=== PATIENT | male | born 1985 | race Caucasian/White ===

== ENCOUNTER 2017-07-28 21:17 | Emergency (ER) | payer BC ==
--- NOTE | 2017-07-28 21:37 | EDM.PDOC ---
ED HPI GENERAL MEDICAL PROBLEM - General Chief Complaint: Lower Extremity Injury/Pain Stated Complaint: SURGERY COMPLICATIONS Time Seen by Provider: 07/28/17 21:18 Source of Information: Reports: Patient History Limitations: Reports: No Limitations - History of Present Illness INITIAL COMMENTS - FREE TEXT/NARRATIVE: HISTORY AND PHYSICAL: History of present illness: 32-year-old male presenting emergency department with chief complaint of right upper leg swelling and pain 1-1/2 hours. Patient states that he had surgery today to remove the mass from his upper inner thigh in [place]. Dr. Collado, vascular surgeon perform the surgery. He was discharged today in good condition with a prescription for Cipro which he took at 5 PM as well as Percocet which she took it 1 PM. Patient does admit to walking up and down the stairs multiple times. At 2014 patient states that he began to have significant pain in the right inner thigh where the surgery was done. He also noticed increased swelling as well as throbbing. This increased dramatically so he called EMS for evaluation. Patient states that his has called Dr. Lima office but they have not heard back. - Talked with Dr. Kendall [facility] [place] as well as Dr. Collado [facility] [place]. Dr. Collado accepts patient for transfer for suspected postoperative bleeding. Review of systems: As per history of present illness and below otherwise all systems reviewed and negative. Past medical history: As per history of present illness and as reviewed below otherwise noncontributory. Surgical history: As per history of present illness and as reviewed below otherwise noncontributory. Social history: No reported history of drug or alcohol abuse. Family history: As per history of present illness and as reviewed below otherwise noncontributory. Physical exam: HEENT: Atraumatic, normocephalic, pupils reactive, negative for conjunctival pallor or scleral icterus, mucous membranes moist, throat clear, neck supple, nontender, trachea midline. Lungs: Clear to auscultation, breath sounds equal bilaterally, chest nontender. Heart: S1S2, regular, negative for clicks, rubs, or JVD. Abdomen: Soft, nondistended, nontender. Negative for masses or hepatosplenomegaly. Negative for costovertebral tenderness. Pelvis: Stable nontender. Genitourinary: Deferred. Rectal: Deferred. Extremities: There is a closed 8 cm incision site on the left inner aspect of the left thigh. There is surrounding ecchymosis and indurationn that is of significant size. Posterior tibialis and dorsalis pedis pulses are +2. Negative for cords or calf pain. Neurovascular unremarkable. Neuro: Awake, alert, oriented. Cranial nerves II through XII unremarkable. Cerebellum unremarkable. Motor and sensory unremarkable throughout. Exam nonfocal. Diagnostics: CBC, CMP Therapeutics: IV normal saline Impression: Acute postoperative bleed Plan: See H&P. Dr. Collado, surgery [facility] was advised the patient as he did surgery earlier today on him. He exception for transport for further evaluation in [place] for suspected postoperative lead. Patient was started on 1 L normal saline. Vital signs were stable and hemoglobin was found to be 15.5. Right Upper Leg Pain Score (Numeric/FACES): 10 - Related Data Allergies Allergy/AdvReac Type Severity Reaction Status Date / Time cat dander Allergy Other Verified 07/28/17 21:28 grass pollen Allergy Other Verified 07/28/17 21:28 Home Meds: Home Meds Ciprofloxacin HCl [Cipro] 1 tab QID 07/28/17 [History] Fluticasone Propionate [Flonase Allergy Relief] 1 spray DAILY 07/28/17 [History] Multivitamin [Multi-Vitamin Daily] 1 tab DAILY 07/28/17 [History] oxyCODONE HCl/Acetaminophen [Percocet 5-325 mg Tablet] 1 tab PRN 07/28/17 [ History] Review of Systems - Review of Systems Review Of Systems: See Below ED EXAM, GENERAL - Physical Exam Exam: See Below Course - Vital Signs Last Recorded V/S: Last Vital Signs Temp 98.4 F 07/28/17 21:18 Pulse 86 07/28/17 21:18 Resp 20 07/28/17 21:18 BP 142/85 H 07/28/17 21:18 Pulse Ox 97 07/28/17 21:18 - Orders/Labs/Meds Orders: Active Orders 24 hr Category Date Time Status COMPREHENSIVE METABOLIC PN,CMP [CHEM] Stat Lab 07/28/17 21:37 Received Labs: Laboratory Tests 07/28/17 Range/Units 21:37 WBC 11.98 H (4.0-11.0) K/uL RBC 4.91 (4.50-5.90) M/uL Hgb 15.5 (13.0-17.0) g/dL Hct 43.0 (38.0-50.0) % MCV 87.6 (80.0-98.0) fL MCH 31.6 (27.0-32.0) pg MCHC 36.0 (31.0-37.0) g/dL RDW Std Deviation 42.0 (28.0-62.0) fl RDW Coeff of Enma 13 (11.0-15.0) % Plt Count 234 (150-400) K/uL MPV 10.10 (7.40-12.00) fL Neut % (Auto) 81.5 H (48.0-80.0) % Lymph % (Auto) 14.9 L (16.0-40.0) % Lyman % (Auto) 3.3 (0.0-15.0) % Eos % (Auto) 0.1 (0.0-7.0) % Baso % (Auto) 0.2 (0.0-1.5) % Neut # (Auto) 9.8 H (1.4-5.7) K/uL Lymph # (Auto) 1.8 (0.6-2.4) K/uL Lyman # (Auto) 0.4 (0.0-0.8) K/uL Eos # (Auto) 0.0 (0.0-0.7) K/uL Baso # (Auto) 0.0 (0.0-0.1) K/uL Nucleated RBC % 0.0 /100WBC Nucleated RBCs # 0 K/uL Departure - Departure Time of Disposition: 21:51 Disposition: DC/Tfer to Other 70 Condition: Good Clinical Impression: Post-operative hemorrhage Qualifiers: Surgical complication system/body Area: musculoskeletal system Procedure type: musculoskeletal Qualified Code(s): M96.830 - Postprocedural hemorrhage of a musculoskeletal structure following a musculoskeletal system procedure - Discharge Information Forms: ED Department Discharge - My Orders Last 24 Hours: My Active Orders 07/28/17 21:37 COMPREHENSIVE METABOLIC PN,CMP [CHEM] Stat - Assessment/Plan Last 24 Hours: My Active Orders 07/28/17 21:37 COMPREHENSIVE METABOLIC PN,CMP [CHEM] Stat
[2017-07-28 22:05] LABS: CHLORIDE,CL 103 mmol/L (98-107); SODIUM,NA 136 mmol/L (136-148)
== END 2017-07-28 23:20 | disposition other institution (70) ==
LOC: MW.ED 21:17
DX: M96.830 Postprocedural hemorrhage of a musculoskeletal structure following a musculoskeletal system procedure (principal); Z91.048 Other nonmedicinal substance allergy status
CPT/HCPCS: 36415; 80053; 85025; 99284; 99285

== ENCOUNTER 2018-05-04 20:29 | Inpatient (IN) | payer BC ==
[2018-05-04] MEDS ORDERED: Ibuprofen 800 MG Tab PO ONE (20:55)
[2018-05-04] MEDS ORDERED: Sodium Chloride 0.9% 1,000 ML IV ONE (20:55)
--- NOTE | 2018-05-04 20:55 | EDM.PDOC ---
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 The patient presents with complaints of a fever that has been ongoing for the last 24 hours the highest being 100.1. He has been taking Tylenol every 8 hours and was told that if the temperature went above 100 he should come in to be seen. The patient has no complaints other than body aches and malaise and does sound that he did get his influenza shot last week. He's had no urinary complaints no nausea vomiting or diarrhea no chest pain or shortness of breath and has just had a slight runny nose and did have a bloody nose last night but when he called the oncology clinic they said to just use a cool mist humidifier. The patient is Still doing home wound care on his incision and there is been no drainage swelling or discomfort to the area. Patient denies any complaints currently other than just feeling rundown and says he has been eating and drinking normally. Review of systems: As per history of present illness and below otherwise all systems reviewed and negative. Past medical history: As per history of present illness and as reviewed below otherwise noncontributory. Surgical history: As per history of present illness and as reviewed below otherwise noncontributory. Social history: No reported history of drug or alcohol abuse. Family history: As per history of present illness and as reviewed below otherwise noncontributory. Physical exam: General: Well-developed well-nourished man who is overweight and nontoxic. Vital signs are noted by me. Oral temperature was 100.6 HEENT: Atraumatic, normocephalic, pupils reactive, negative for conjunctival pallor or scleral icterus, mucous membranes moist, throat clear, neck supple, nontender, trachea midline. There is no cervical adenopathy or nuchal rigidity Lungs: Clear to auscultation, breath sounds equal bilaterally, chest nontender. No wheezing stridor or work of breathing and 40 seen in the chest wall without erythema tenderness or swelling Heart: S1S2, regular rhythm and tachycardic rate on my evaluation no overt murmurs Abdomen: Soft, nondistended, nontender. Negative for masses or hepatosplenomegaly. Negative for costovertebral tenderness. Pelvis: Stable nontender. Genitourinary: Deferred. Rectal: Deferred. Extremities: Atraumatic, negative for cords or calf pain. Neurovascular unremarkable. At the right inner thigh there is a well-healed incision seen with a small area with a dressing on it that is open but there is no drainage erythema or fluctuance appreciated and there is no tenderness with palpation Neuro: Awake, alert, oriented. Cranial nerves II through XII unremarkable. Cerebellum unremarkable. Motor and sensory unremarkable throughout. Exam nonfocal. Diagnostics: CBC CMP UA urine culture blood cultures 2 influenza lactic acid chest x-ray rapid strep Therapeutics: Port access IV fluids, motrin as he took Tylenol at home Please note that when the nurse went to go give him 800 mg of Motrin the patient says he took 400 at home approximately 2 hours ago. He denied taking any Tylenol recently which is completely contrary to what he told me. I will proceed to give him 400 mg of Motrin here in the ED and 1 g of Tylenol. 2154: This was discussed with Dr. Yarbrough who is aware of this case and agrees to admission. I also discussed this case with Dr. Ramona Muller the oncologist recreation counselor for my patients primary oncology physician, Dr Matoe Mluler, and she initially wanted me to give the patient cefepime but the patient has anaphylactic shock to cephalosporins. He says that he can take Zosyn and I will give him a dose of that. She is aware of the change in antibiotic. She is also aware of the admission here. Impression: Neutropenic fever and a history of Peres's sarcoma Definitive disposition and diagnosis as appropriate pending reevaluation and review of above. Treatments BUSINESS SOLUTIONS DIRECTOR: Reports: Acetaminophen body Pain Score (Numeric/FACES): 8 - Related Data Allergies Allergy/AdvReac Type Severity Reaction Status Date / Time cat dander Allergy Other Verified 07/28/17 21:28 cephalexin [From Keflex] Allergy Anaphylactic Verified 05/04/18 20:51 Shock enoxaparin [From Lovenox] Allergy Other Verified 05/04/18 20:51 grass pollen Allergy Other Verified 07/28/17 21:28 Home Meds: Home Meds Acetaminophen [Pain Reliever] 500 mg PO BID 05/04/18 [History] Cannabidiol (Cbd) Extract [Epidiolex] 100 mg PO DAILY 05/04/18 [History] Loratadine [Claritin] 1 tab PO BID 05/04/18 [History] Past Medical History Respiratory History: Reports: Asthma Oncologic (Cancer) History: Reports: Other (See Below) 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, hematoma removal - Past Surgical History HEENT Surgical History: Reports: Oral Surgery Other GI Surgeries/Procedures: lap band Social & Family History - Family History Family Medical History: Noncontributory - Tobacco Use Smoking Status *Q: Never Smoker - Caffeine Use Caffeine Use: Reports: None - Recreational Drug Use Recreational Drug Use: No ED ROS GENERAL - Review of Systems Review Of Systems: ROS reveals no pertinent complaints other than HPI. ED EXAM, GENERAL - Physical Exam Exam: See Below (See dictation) Course - Vital Signs Last Recorded V/S: Last Vital Signs Temp 37.2 C 05/04/18 22:25 Pulse 96 05/04/18 22:25 Resp 18 05/04/18 22:25 BP 132/78 05/04/18 22:25 Pulse Ox 97 05/04/18 22:25 - Orders/Labs/Meds Orders: Active Orders 24 hr Category Date Time Status Patient Status [ADT] Stat ADT 05/04/18 22:35 Ordered Communication Order [RC] STAT Care 05/04/18 21:26 Active Implanted Port Access [RC] DAILY Care 05/04/18 20:48 Active CULTURE BLOOD [BC] Stat Lab 05/04/18 21:00 Received CULTURE BLOOD [BC] Stat Lab 05/04/18 21:10 Received CULTURE STREP A CONFIRMATION [RM] Stat Lab 05/04/18 21:00 Results CULTURE URINE [RM] Stat Lab 05/04/18 21:00 Received STREP SCRN A RAPID W CULT CONF [RM] Stat Lab 05/04/18 21:00 Results Piperacillin/Tazobactam [Piperacil-Tazobact] 4.5 gm Med 05/04/18 22:35 Ordered Sodium Chloride 0.9% [Normal Saline] 100 ml IV ONETIME Blood Culture x2 Reflex Set [OM.PC] Stat Oth 05/04/18 20:49 Ordered Medication Orders Piperacillin Sod/Tazobactam (Sod 4.5 gm/ Sodium Chloride) 100 mls @ 100 mls/hr IV ONETIME ONE Stop: 05/04/18 23:34 Labs: Laboratory Tests 05/04/18 05/04/18 05/04/18 Range/Units 21:00 21:00 21:00 WBC 0.97 L (4.0-11.0) K/uL RBC 4.46 L (4.50-5.90) M/uL Hgb 12.8 L (13.0-17.0) g/dL Hct 37.0 L (38.0-50.0) % MCV 83.0 (80.0-98.0) fL MCH 28.7 (27.0-32.0) pg MCHC 34.6 (31.0-37.0) g/dL RDW Std Deviation 39.7 (28.0-62.0) fl RDW Coeff of Enma 13 (11.0-15.0) % Plt Count 106 L (150-400) K/uL MPV 9.40 (7.40-12.00) fL Add Manual Diff YES Neutrophils % (Manual) 3 L (48.0-80.0) % Band Neutrophils % 6 % Lymphocytes % (Manual) 66 H (16.0-40.0) % Monocytes % (Manual) 23 H (0.0-15.0) % Eosinophils % (Manual) 1 (0.0-7.0) % Basophils % (Manual) 1 (0.0-1.5) % Absolute Seg Neuts 0.0 L (1.4-5.7) Band Neutrophils # 0.1 Lymphocytes # (Manual) 0.6 (0.6-2.4) Monocytes # (Manual) 0.2 (0.0-0.8) Eosinophils # (Manual) 0.0 (0.0-0.7) Basophils # (Manual) 0.0 (0.0-0.1) Lactate (0.20-2.00) mmol/L Sodium 138 (136-148) mmol/L Potassium 3.9 (3.5-5.1) mmol/L Chloride 102 (98-107) mmol/L Carbon Dioxide 25.3 (21.0-32.0) mmol/L BUN 9 (7.0-18.0) mg/dL Creatinine 1.0 (0.8-1.3) mg/dL Est Cr Clr Drug Dosing 110.86 mL/min Estimated GFR (MDRD) > 60.0 ml/min Glucose 152 H (74-106) mg/dL Calcium 8.3 L (8.5-10.1) mg/dL Total Bilirubin 0.2 (0.2-1.0) mg/dL AST 11 L (15-37) IU/L ALT 15 (14-63) IU/L Alkaline Phosphatase 104 (46-116) U/L Total Protein 7.2 (6.4-8.2) g/dL Albumin 3.2 L (3.4-5.0) g/dL Globulin 4.0 (2.6-4.0) g/dL Albumin/Globulin Ratio 0.8 L (0.9-1.6) Urine Color YELLOW Urine Appearance CLEAR Urine pH 7.0 (5.0-8.0) Ur Specific [place] 1.010 (1.001-1.035) Urine Protein NEGATIVE (NEGATIVE) mg/dL Urine Glucose (UA) NEGATIVE (NEGATIVE) mg/dL Urine Ketones NEGATIVE (NEGATIVE) mg/dL Urine Occult Blood NEGATIVE (NEGATIVE) Urine Nitrite NEGATIVE (NEGATIVE) Urine Bilirubin NEGATIVE (NEGATIVE) Urine Urobilinogen 0.2 (<2.0) EU/dL Ur Leukocyte Esterase NEGATIVE (NEGATIVE) Urine RBC 0-1 (0-2/HPF) Urine WBC 0-1 (0-5/HPF) Ur Epithelial Cells RARE (NONE-FEW) Urine Bacteria RARE (NEGATIVE) 05/04/18 Range/Units 21:00 WBC (4.0-11.0) K/uL RBC (4.50-5.90) M/uL Hgb (13.0-17.0) g/dL Hct (38.0-50.0) % MCV (80.0-98.0) fL MCH (27.0-32.0) pg MCHC (31.0-37.0) g/dL RDW Std Deviation (28.0-62.0) fl RDW Coeff of Enma (11.0-15.0) % Plt Count (150-400) K/uL MPV (7.40-12.00) fL Add Manual Diff Neutrophils % (Manual) (48.0-80.0) % Band Neutrophils % % Lymphocytes % (Manual) (16.0-40.0) % Monocytes % (Manual) (0.0-15.0) % Eosinophils % (Manual) (0.0-7.0) % Basophils % (Manual) (0.0-1.5) % Absolute Seg Neuts (1.4-5.7) Band Neutrophils # Lymphocytes # (Manual) (0.6-2.4) Monocytes # (Manual) (0.0-0.8) Eosinophils # (Manual) (0.0-0.7) Basophils # (Manual) (0.0-0.1) Lactate 2.0 (0.20-2.00) mmol/L Sodium (136-148) mmol/L Potassium (3.5-5.1) mmol/L Chloride (98-107) mmol/L Carbon Dioxide (21.0-32.0) mmol/L BUN (7.0-18.0) mg/dL Creatinine (0.8-1.3) mg/dL Est Cr Clr Drug Dosing mL/min Estimated GFR (MDRD) ml/min Glucose (74-106) mg/dL Calcium (8.5-10.1) mg/dL Total Bilirubin (0.2-1.0) mg/dL AST (15-37) IU/L ALT (14-63) IU/L Alkaline Phosphatase (46-116) U/L Total Protein (6.4-8.2) g/dL Albumin (3.4-5.0) g/dL Globulin (2.6-4.0) g/dL Albumin/Globulin Ratio (0.9-1.6) Urine Color Urine Appearance Urine pH (5.0-8.0) Ur Specific [place] (1.001-1.035) Urine Protein (NEGATIVE) mg/dL Urine Glucose (UA) (NEGATIVE) mg/dL Urine Ketones (NEGATIVE) mg/dL Urine Occult Blood (NEGATIVE) Urine Nitrite (NEGATIVE) Urine Bilirubin (NEGATIVE) Urine Urobilinogen (<2.0) EU/dL Ur Leukocyte Esterase (NEGATIVE) Urine RBC (0-2/HPF) Urine WBC (0-5/HPF) Ur Epithelial Cells (NONE-FEW) Urine Bacteria (NEGATIVE) Meds: Medications Generic Name Dose Route Start Last Admin Trade Name Gaviota PRN Reason Stop Dose Admin Piperacillin Sod/Tazobactam 100 mls @ 100 mls/hr 05/04/18 22:35 Sod 4.5 gm/ Sodium Chloride IV 05/04/18 23:34 ONETIME ONE Discontinued Medications Generic Name Dose Route Start Last Admin Trade Name Gaviota PRN Reason Stop Dose Admin Acetaminophen 1,000 mg 05/04/18 21:23 05/04/18 21:31 Tylenol Extra Strength PO 05/04/18 21:24 1,000 mg ONETIME ONE Administration Sodium Chloride 1,000 mls @ 999 mls/hr 05/04/18 20:55 05/04/18 21:10 Normal Saline IV 05/04/18 21:55 999 mls/hr STAT ONE Administration Ibuprofen 800 mg 05/04/18 20:55 05/04/18 21:46 Motrin PO 05/04/18 20:56 Not Given ONETIME ONE Ibuprofen 400 mg 05/04/18 21:23 05/04/18 21:31 Motrin PO 05/04/18 21:24 400 mg ONETIME ONE Administration Departure - Departure Time of Disposition: 22:40 Disposition: Admitted As Inpatient 66 Condition: Good Clinical Impression: Neutropenic fever - Discharge Information Referrals: PCP,None [Primary Care Provider] - Forms: ED Department Discharge - My Orders Last 24 Hours: My Active Orders 05/04/18 20:48 Implanted Port Access [RC] DAILY 05/04/18 20:49 Blood Culture x2 Reflex Set [OM.PC] Stat 05/04/18 21:00 CULTURE BLOOD [BC] Stat CULTURE STREP A CONFIRMATION [RM] Stat CULTURE URINE [RM] Stat STREP SCRN A RAPID W CULT CONF [RM] Stat 05/04/18 21:10 CULTURE BLOOD [BC] Stat 05/04/18 21:26 Communication Order [RC] STAT 05/04/18 22:35 Patient Status [ADT] Stat Piperacillin/Tazobactam [Piperacil-Tazobact] 4.5 gm Sodium Chloride 0.9% [ Normal Saline] 100 ml IV ONETIME - Assessment/Plan Last 24 Hours: My Active Orders 05/04/18 20:48 Implanted Port Access [RC] DAILY 05/04/18 20:49 Blood Culture x2 Reflex Set [OM.PC] Stat 05/04/18 21:00 CULTURE BLOOD [BC] Stat CULTURE STREP A CONFIRMATION [RM] Stat CULTURE URINE [RM] Stat STREP SCRN A RAPID W CULT CONF [RM] Stat 05/04/18 21:10 CULTURE BLOOD [BC] Stat 05/04/18 21:26 Communication Order [RC] STAT 05/04/18 22:35 Patient Status [ADT] Stat Piperacillin/Tazobactam [Piperacil-Tazobact] 4.5 gm Sodium Chloride 0.9% [ Normal Saline] 100 ml IV ONETIME
[2018-05-04] MEDS ORDERED: Ibuprofen 400 MG Tab PO ONE (21:23)
[2018-05-04] MEDS ORDERED: Acetaminophen 500 MG Tab PO ONE (21:23)
[2018-05-04 21:31] LABS: CHLORIDE,CL 102 mmol/L (98-107); SODIUM,NA 138 mmol/L (136-148)
--- NOTE | 2018-05-04 21:35 | CR ---
INDICATION: Peres sarcoma, fever for 2 days TECHNIQUE: Chest 2 views. COMPARISON: None FINDINGS: Cardiovascular and mediastinum: Heart size and vasculature are normal in caliber and appearance. Mediastinum is within normal limits. Right-sided Port-A-Cath tip terminates at the level of the cavoatrial junction. Lungs and pleural spaces: Lungs are clear. No sign of infiltrate or mass. No sign of pleural effusion. No pneumothorax. Bones and soft tissues: No significant findings. IMPRESSION: No sign of acute disease. Dictated by Amy Murillo MD @ May 04 2018 9:32PM Signed by Dr. Amy Murillo @ May 04 2018 9:33PM
[2018-05-04] MEDS ORDERED: Piperacillin/Tazobactam 4.5 GM in Sodium Chloride 0.9% 100 ML IV ONE (22:35)
--- NOTE | 2018-05-04 23:28 | PCM.HP ---
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 His last infusion was last in which he also received Neulasta. He denies any cough, diarrhea, rash, or abdominal pain. Patient reports some pain in the cartilage at the tip of his nose. body Pain Score (Numeric/FACES): 8 - Related Data Allergies/Adverse Reactions: Allergies Allergy/AdvReac Type Severity Reaction Status Date / Time cat dander Allergy Other Verified 07/28/17 21:28 cephalexin [From Keflex] Allergy Anaphylactic Verified 05/04/18 20:51 Shock enoxaparin [From Lovenox] Allergy Other Verified 05/04/18 20:51 grass pollen Allergy Other Verified 07/28/17 21:28 Home Medications: Home Meds Acetaminophen [Pain Reliever] 500 mg PO BID 05/04/18 [History] Cannabidiol (Cbd) Extract [Epidiolex] 100 mg PO DAILY 05/04/18 [History] Cholecalciferol (Vitamin D3) [Vitamin D] 5,000 unit PO DAILY 05/04/18 [History] Loratadine [Claritin] 1 tab PO BID 05/04/18 [History] Multivitamin [Multi-Vitamin Daily] 1 each PO DAILY 05/04/18 [History] Past Medical History Respiratory History: Reports: Asthma Endocrine/Metabolic History: Reports: Obesity/BMI 30+ Oncologic (Cancer) History: Reports: Other (See Below) 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, hematoma removal - Past Surgical History HEENT Surgical History: Reports: Oral Surgery Other GI Surgeries/Procedures: lap band Social & Family History - Family History Family Medical History: Noncontributory - Tobacco Use Smoking Status *Q: Never Smoker - Caffeine Use Caffeine Use: Reports: None - Recreational Drug Use Recreational Drug Use: No H&P Review of Systems - Review of Systems: Review Of Systems: ROS reveals no pertinent complaints other than HPI. Exam - Exam Exam: See Below - Vital Signs Vital Signs: Last Vital Signs Temp 37.0 C 05/04/18 22:55 Pulse 89 05/04/18 22:55 Resp 19 05/04/18 22:55 BP 137/80 05/04/18 22:55 Pulse Ox 97 05/04/18 22:55 Weight: 143 kg - Exam General: Alert, Oriented HEENT: Mucosa Moist & [place] Neck: Supple, Trachea Midline Lungs: Clear to Auscultation, Normal Respiratory Effort Cardiovascular: Regular Rate, Regular Rhythm GI/Abdominal Exam: Normal Bowel Sounds, Soft, Non-Tender Extremities: Normal Range of Motion, Non-Tender Skin: Warm, Dry, Intact - Patient Data Lab Results Last 24 hrs: Laboratory Results - last 24 hr 05/04/18 05/04/18 05/04/18 Range/Units 21:00 21:00 21:00 WBC 0.97 L (4.0-11.0) K/uL RBC 4.46 L (4.50-5.90) M/uL Hgb 12.8 L (13.0-17.0) g/dL Hct 37.0 L (38.0-50.0) % MCV 83.0 (80.0-98.0) fL MCH 28.7 (27.0-32.0) pg MCHC 34.6 (31.0-37.0) g/dL RDW Std Deviation 39.7 (28.0-62.0) fl RDW Coeff of Enma 13 (11.0-15.0) % Plt Count 106 L (150-400) K/uL MPV 9.40 (7.40-12.00) fL Add Manual Diff YES Neutrophils % (Manual) 3 L (48.0-80.0) % Band Neutrophils % 6 % Lymphocytes % (Manual) 66 H (16.0-40.0) % Monocytes % (Manual) 23 H (0.0-15.0) % Eosinophils % (Manual) 1 (0.0-7.0) % Basophils % (Manual) 1 (0.0-1.5) % Absolute Seg Neuts 0.0 L (1.4-5.7) Band Neutrophils # 0.1 Lymphocytes # (Manual) 0.6 (0.6-2.4) Monocytes # (Manual) 0.2 (0.0-0.8) Eosinophils # (Manual) 0.0 (0.0-0.7) Basophils # (Manual) 0.0 (0.0-0.1) Lactate (0.20-2.00) mmol/L Sodium 138 (136-148) mmol/L Potassium 3.9 (3.5-5.1) mmol/L Chloride 102 (98-107) mmol/L Carbon Dioxide 25.3 (21.0-32.0) mmol/L BUN 9 (7.0-18.0) mg/dL Creatinine 1.0 (0.8-1.3) mg/dL Est Cr Clr Drug Dosing 110.86 mL/min Estimated GFR (MDRD) > 60.0 ml/min Glucose 152 H (74-106) mg/dL Calcium 8.3 L (8.5-10.1) mg/dL Total Bilirubin 0.2 (0.2-1.0) mg/dL AST 11 L (15-37) IU/L ALT 15 (14-63) IU/L Alkaline Phosphatase 104 (46-116) U/L Total Protein 7.2 (6.4-8.2) g/dL Albumin 3.2 L (3.4-5.0) g/dL Globulin 4.0 (2.6-4.0) g/dL Albumin/Globulin Ratio 0.8 L (0.9-1.6) Urine Color YELLOW Urine Appearance CLEAR Urine pH 7.0 (5.0-8.0) Ur Specific [place] 1.010 (1.001-1.035) Urine Protein NEGATIVE (NEGATIVE) mg/dL Urine Glucose (UA) NEGATIVE (NEGATIVE) mg/dL Urine Ketones NEGATIVE (NEGATIVE) mg/dL Urine Occult Blood NEGATIVE (NEGATIVE) Urine Nitrite NEGATIVE (NEGATIVE) Urine Bilirubin NEGATIVE (NEGATIVE) Urine Urobilinogen 0.2 (<2.0) EU/dL Ur Leukocyte Esterase NEGATIVE (NEGATIVE) Urine RBC 0-1 (0-2/HPF) Urine WBC 0-1 (0-5/HPF) Ur Epithelial Cells RARE (NONE-FEW) Urine Bacteria RARE (NEGATIVE) 05/04/18 Range/Units 21:00 WBC (4.0-11.0) K/uL RBC (4.50-5.90) M/uL Hgb (13.0-17.0) g/dL Hct (38.0-50.0) % MCV (80.0-98.0) fL MCH (27.0-32.0) pg MCHC (31.0-37.0) g/dL RDW Std Deviation (28.0-62.0) fl RDW Coeff of Enma (11.0-15.0) % Plt Count (150-400) K/uL MPV (7.40-12.00) fL Add Manual Diff Neutrophils % (Manual) (48.0-80.0) % Band Neutrophils % % Lymphocytes % (Manual) (16.0-40.0) % Monocytes % (Manual) (0.0-15.0) % Eosinophils % (Manual) (0.0-7.0) % Basophils % (Manual) (0.0-1.5) % Absolute Seg Neuts (1.4-5.7) Band Neutrophils # Lymphocytes # (Manual) (0.6-2.4) Monocytes # (Manual) (0.0-0.8) Eosinophils # (Manual) (0.0-0.7) Basophils # (Manual) (0.0-0.1) Lactate 2.0 (0.20-2.00) mmol/L Sodium (136-148) mmol/L Potassium (3.5-5.1) mmol/L Chloride (98-107) mmol/L Carbon Dioxide (21.0-32.0) mmol/L BUN (7.0-18.0) mg/dL Creatinine (0.8-1.3) mg/dL Est Cr Clr Drug Dosing mL/min Estimated GFR (MDRD) ml/min Glucose (74-106) mg/dL Calcium (8.5-10.1) mg/dL Total Bilirubin (0.2-1.0) mg/dL AST (15-37) IU/L ALT (14-63) IU/L Alkaline Phosphatase (46-116) U/L Total Protein (6.4-8.2) g/dL Albumin (3.4-5.0) g/dL Globulin (2.6-4.0) g/dL Albumin/Globulin Ratio (0.9-1.6) Urine Color Urine Appearance Urine pH (5.0-8.0) Ur Specific [place] (1.001-1.035) Urine Protein (NEGATIVE) mg/dL Urine Glucose (UA) (NEGATIVE) mg/dL Urine Ketones (NEGATIVE) mg/dL Urine Occult Blood (NEGATIVE) Urine Nitrite (NEGATIVE) Urine Bilirubin (NEGATIVE) Urine Urobilinogen (<2.0) EU/dL Ur Leukocyte Esterase (NEGATIVE) Urine RBC (0-2/HPF) Urine WBC (0-5/HPF) Ur Epithelial Cells (NONE-FEW) Urine Bacteria (NEGATIVE) Result Diagrams: 05/06/18 09:09 05/06/18 09:09 [facility]oman Results Last 24 hrs: Microbiology 05/04/18 21:00 Influenza Type A Antigen Screen - Final Nasopharyngeal Swab NEGATIVE INFLUENZA A VIRUS AG Influenza Type B Antigen Screen - Final NEGATIVE INFLUENZA B VIRUS AG 05/04/18 21:00 Group A Streptococcus Rapid Screen - Final Throat NEGATIVE STREP A SCREEN Problem List Initiated/Reviewed/Updated: Yes Orders Last 24hrs: Active Orders 24 hr Category Date Time Status Patient Status [ADT] Stat ADT 05/04/18 22:35 Active Antiembolic Devices [RC] PER UNIT ROUTINE Care 05/04/18 23:22 Ordered Communication Order [RC] STAT Care 05/04/18 21:26 Active Implanted Port Access [RC] DAILY Care 05/04/18 20:48 Active Oxygen Therapy [RC] PRN Care 05/04/18 23:21 Ordered Up ad [place] [RC] ASDIRECTED Care 05/04/18 23:21 Ordered VTE/DVT Education [RC] PER UNIT ROUTINE Care 05/04/18 23:21 Ordered Vital Signs [RC] Q4H Care 05/04/18 23:21 Ordered Regular Diet [DIET] Diet 05/04/18 Breakfast Ordered BASIC METABOLIC PANEL,BMP [CHEM] AM Lab 05/05/18 05:11 Ordered CBC WITH AUTO DIFF [HEME] AM Lab 05/05/18 05:11 Ordered CULTURE BLOOD [BC] Stat Lab 05/04/18 21:00 Received CULTURE BLOOD [BC] Stat Lab 05/04/18 21:10 Received CULTURE STREP A CONFIRMATION [RM] Stat Lab 05/04/18 21:00 Results CULTURE URINE [RM] Stat Lab 05/04/18 21:00 Received STREP SCRN A RAPID W CULT CONF [RM] Stat Lab 05/04/18 21:00 Results Heparin Sodium Med 05/04/18 23:30 Ordered 5,000 units SUBCUT Q8H Piperacillin/Tazobactam [Piperacil-Tazobact] 4.5 gm Med 05/04/18 22:35 Active Sodium Chloride 0.9% [Normal Saline] 100 ml IV ONETIME Piperacillin/Tazobactam [Piperacil-Tazobact] 4.5 gm Med 05/05/18 06:00 Ordered Sodium Chloride 0.9% [Normal Saline] 100 ml IV Q6H Blood Culture x2 Reflex Set [OM.PC] Stat Oth 05/04/18 20:49 Ordered Sequential Compression Device [OM.PC] Per Unit Routine Oth 05/04/18 23:21 Ordered Resuscitation Status Routine Resus Stat 05/04/18 23:21 Ordered Medication Orders Heparin Sodium (Porcine) (Heparin Sodium) 5,000 units SUBCUT Q8H [facility] Piperacillin Sod/Tazobactam (Sod 4.5 gm/ Sodium Chloride) 100 mls @ 100 mls/hr IV ONETIME ONE Stop: 05/04/18 23:34 Last Admin: 05/04/18 22:48 Dose: 100 mls/hr Piperacillin Sod/Tazobactam (Sod 4.5 gm/ Sodium Chloride) 100 mls @ 100 mls/hr IV Q6H [facility] Assessment/Plan Comment:: 33 yo male admitted with neutropenic fever. We will treat with Zosyn. Cultures have been ordered.
[2018-05-04] MEDS: Heparin Sodium 5,000 Units/ML Vial SUBCUT SCH (23:57)
[2018-05-05] MEDS: Piperacillin/Tazobactam 4.5 GM in Sodium Chloride 0.9% 100 ML IV SCH ×3 (05:29→18:11)
[2018-05-05 06:10] LABS: CHLORIDE,CL 104 mmol/L (98-107); SODIUM,NA 141 mmol/L (136-148)
[2018-05-05] MEDS ORDERED: Acetaminophen 325 MG Tab PO PRN (07:21)
[2018-05-05] MEDS: Heparin Sodium 5,000 Units/ML Vial SUBCUT SCH ×2 (07:52→15:43)
[2018-05-05] MEDS: Acetaminophen 325 MG Tab PO PRN ×2 (11:54→19:52)
--- NOTE | 2018-05-05 11:58 | PCM.PN ---
- General Info Date of Service: 05/05/18 Subjective Update: Patient states he is feeling slightly better than yesterday however he didn't have an elevated temperature throughout this morning. And is complaining of a mild headache. - Patient Data Vitals - Most Recent: Last Vital Signs Temp 37.7 C 05/05/18 10:05 Pulse 107 H 05/05/18 07:46 Resp 16 05/05/18 07:46 BP 135/70 05/05/18 07:46 Pulse Ox 94 L 05/05/18 07:46 Weight - Most Recent: 143.925 kg I&O - Last 24 Hours: Intake & Output 05/04/18 05/05/18 05/05/18 22:59 06:59 14:59 Intake Total 220 Output Total 500 Balance -280 Lab Results Last 24 Hours: Laboratory Results - last 24 hr 05/04/18 05/04/18 05/04/18 Range/Units 21:00 21:00 21:00 WBC 0.97 L (4.0-11.0) K/uL RBC 4.46 L (4.50-5.90) M/uL Hgb 12.8 L (13.0-17.0) g/dL Hct 37.0 L (38.0-50.0) % MCV 83.0 (80.0-98.0) fL MCH 28.7 (27.0-32.0) pg MCHC 34.6 (31.0-37.0) g/dL RDW Std Deviation 39.7 (28.0-62.0) fl RDW Coeff of En[place] 13 (11.0-15.0) % Plt Count 106 L (150-400) K/uL MPV 9.40 (7.40-12.00) fL Add Manual Diff YES Neutrophils % (Manual) 3 L (48.0-80.0) % Band Neutrophils % 6 % Lymphocytes % (Manual) 66 H (16.0-40.0) % Monocytes % (Manual) 23 H (0.0-15.0) % Eosinophils % (Manual) 1 (0.0-7.0) % Basophils % (Manual) 1 (0.0-1.5) % Nucleated RBC % /100WBC Absolute Seg Neuts 0.0 L (1.4-5.7) Band Neutrophils # 0.1 Lymphocytes # (Manual) 0.6 (0.6-2.4) Monocytes # (Manual) 0.2 (0.0-0.8) Eosinophils # (Manual) 0.0 (0.0-0.7) Basophils # (Manual) 0.0 (0.0-0.1) Nucleated RBCs # K/uL Lactate (0.20-2.00) mmol/L Sodium 138 (136-148) mmol/L Potassium 3.9 (3.5-5.1) mmol/L Chloride 102 (98-107) mmol/L Carbon Dioxide 25.3 (21.0-32.0) mmol/L BUN 9 (7.0-18.0) mg/dL Creatinine 1.0 (0.8-1.3) mg/dL Est Cr Clr Drug Dosing 110.86 mL/min Estimated GFR (MDRD) > 60.0 ml/min Glucose 152 H (74-106) mg/dL Calcium 8.3 L (8.5-10.1) mg/dL Total Bilirubin 0.2 (0.2-1.0) mg/dL AST 11 L (15-37) IU/L ALT 15 (14-63) IU/L Alkaline Phosphatase 104 (46-116) U/L Total Protein 7.2 (6.4-8.2) g/dL Albumin 3.2 L (3.4-5.0) g/dL Globulin 4.0 (2.6-4.0) g/dL Albumin/Globulin Ratio 0.8 L (0.9-1.6) Urine Color YELLOW Urine Appearance CLEAR Urine pH 7.0 (5.0-8.0) Ur Specific [place] 1.010 (1.001-1.035) Urine Protein NEGATIVE (NEGATIVE) mg/dL Urine Glucose (UA) NEGATIVE (NEGATIVE) mg/dL Urine Ketones NEGATIVE (NEGATIVE) mg/dL Urine Occult Blood NEGATIVE (NEGATIVE) Urine Nitrite NEGATIVE (NEGATIVE) Urine Bilirubin NEGATIVE (NEGATIVE) Urine Urobilinogen 0.2 (<2.0) EU/dL Ur Leukocyte Esterase NEGATIVE (NEGATIVE) Urine RBC 0-1 (0-2/HPF) Urine WBC 0-1 (0-5/HPF) Ur Epithelial Cells RARE (NONE-FEW) Urine Bacteria RARE (NEGATIVE) 05/04/18 05/05/18 05/05/18 Range/Units 21:00 05:10 05:10 WBC 1.30 L (4.0-11.0) K/uL RBC 4.57 (4.50-5.90) M/uL Hgb 13.3 (13.0-17.0) g/dL Hct 38.6 (38.0-50.0) % MCV 84.5 (80.0-98.0) fL MCH 29.1 (27.0-32.0) pg MCHC 34.5 (31.0-37.0) g/dL RDW Std Deviation 40.4 (28.0-62.0) fl RDW Coeff of [place] 13 (11.0-15.0) % Plt Count 99 L (150-400) K/uL MPV 9.80 (7.40-12.00) fL Add Manual Diff YES Neutrophils % (Manual) 12 L (48.0-80.0) % Band Neutrophils % 12 % Lymphocytes % (Manual) 57 H (16.0-40.0) % Monocytes % (Manual) 16 H (0.0-15.0) % Eosinophils % (Manual) (0.0-7.0) % Basophils % (Manual) 3 H (0.0-1.5) % Nucleated RBC % 0.0 /100WBC Absolute Seg Neuts 0.2 L (1.4-5.7) Band Neutrophils # 0.2 Lymphocytes # (Manual) 0.7 (0.6-2.4) Monocytes # (Manual) 0.2 (0.0-0.8) Eosinophils # (Manual) (0.0-0.7) Basophils # (Manual) 0.0 (0.0-0.1) Nucleated RBCs # 0 K/uL Lactate 2.0 (0.20-2.00) mmol/L Sodium 141 (136-148) mmol/L Potassium 4.3 (3.5-5.1) mmol/L Chloride 104 (98-107) mmol/L Carbon Dioxide 26.6 (21.0-32.0) mmol/L BUN 6 L (7.0-18.0) mg/dL Creatinine 0.8 (0.8-1.3) mg/dL Est Cr Clr Drug Dosing 138.57 mL/min Estimated GFR (MDRD) > 60.0 ml/min Glucose 110 H (74-106) mg/dL Calcium 8.6 (8.5-10.1) mg/dL Total Bilirubin (0.2-1.0) mg/dL AST (15-37) IU/L ALT (14-63) IU/L Alkaline Phosphatase (46-116) U/L Total Protein (6.4-8.2) g/dL Albumin (3.4-5.0) g/dL Globulin (2.6-4.0) g/dL Albumin/Globulin Ratio (0.9-1.6) Urine Color Urine Appearance Urine pH (5.0-8.0) Ur Specific [place] (1.001-1.035) Urine Protein (NEGATIVE) mg/dL Urine Glucose (UA) (NEGATIVE) mg/dL Urine Ketones (NEGATIVE) mg/dL Urine Occult Blood (NEGATIVE) Urine Nitrite (NEGATIVE) Urine Bilirubin (NEGATIVE) Urine Urobilinogen (<2.0) EU/dL Ur Leukocyte Esterase (NEGATIVE) Urine RBC (0-2/HPF) Urine WBC (0-5/HPF) Ur Epithelial Cells (NONE-FEW) Urine Bacteria (NEGATIVE) Noman Results Last 24 Hours: Microbiology 05/04/18 21:00 Influenza Type A Antigen Screen - Final Nasopharyngeal Swab NEGATIVE INFLUENZA A VIRUS AG Influenza Type B Antigen Screen - Final NEGATIVE INFLUENZA B VIRUS AG 05/04/18 21:00 Group A Streptococcus Rapid Screen - Final Throat NEGATIVE STREP A SCREEN Med Orders - Current: Current Medications Acetaminophen (Tylenol) 650 mg PO Q4H PRN PRN Reason: Fever Heparin Sodium (Porcine) (Heparin Sodium) 5,000 units SUBCUT Q8H [facility] Last Admin: 05/05/18 07:52 Dose: Not Given Piperacillin Sod/Tazobactam (Sod 4.5 gm/ Sodium Chloride) 100 mls @ 100 mls/hr IV Q6H [facility] Last Admin: 05/05/18 05:29 Dose: 100 mls/hr Discontinued Medications Acetaminophen (Tylenol Extra Strength) 1,000 mg PO ONETIME ONE Stop: 05/04/18 21:24 Last Admin: 05/04/18 21:31 Dose: 1,000 mg Acetaminophen (Tylenol) 650 mg PO Q6H PRN PRN Reason: Fever Last Admin: 05/05/18 07:36 Dose: 650 mg Sodium Chloride (Normal Saline) 1,000 mls @ 999 mls/hr IV STAT ONE Stop: 05/04/18 21:55 Last Admin: 05/04/18 21:10 Dose: 999 mls/hr Piperacillin Sod/Tazobactam (Sod 4.5 gm/ Sodium Chloride) 100 mls @ 100 mls/hr IV ONETIME ONE Stop: 05/04/18 23:34 Last Admin: 05/04/18 22:48 Dose: 100 mls/hr Ibuprofen (Motrin) 800 mg PO ONETIME ONE Stop: 05/04/18 20:56 Last Admin: 05/04/18 21:46 Dose: Not Given Ibuprofen (Motrin) 400 mg PO ONETIME ONE Stop: 05/04/18 21:24 Last Admin: 05/04/18 21:31 Dose: 400 mg - Exam General: Alert, Oriented, Cooperative Lungs: Clear to Auscultation, Normal Respiratory Effort Cardiovascular: Regular Rate, Regular Rhythm - Problem List Review Problem List Initiated/Reviewed/Updated: Yes - My Orders Last 24 Hours: My Active Orders 05/05/18 11:45 CULTURE CATHETER TIP [RM] Routine Acetaminophen [Tylenol] 650 mg PO Q4H PRN 05/05/18 12:00 Loratadine [Claritin] 1 tab PO BID - Plan Plan:: 33 -year-old male admitted for neutropenic fever secondary to recent history of Peres sarcoma status post resection with a recent chemotherapy previous week. -Patient did have an elevated fever in the a.m. continue with IV Zosyn. Patient states that he did receive Neupogen by his specialized language instructor oncologist earlier in the week. -Continue to monitor labs and vital signs -For the patient's headache patient has acetaminophen on board.
[2018-05-05] MEDS: Loratadine 10 MG Tab PO SCH ×2 (12:16→22:08)
[2018-05-05] MEDS ORDERED: Sodium Chloride 0.65% Nasal Spray 45 ML Bottle NAS PRN (21:42)
[2018-05-06] MEDS: Heparin Sodium 5,000 Units/ML Vial SUBCUT SCH ×3 (00:42→14:45)
[2018-05-06] MEDS: Piperacillin/Tazobactam 4.5 GM in Sodium Chloride 0.9% 100 ML IV SCH ×4 (00:49→18:15)
[2018-05-06] MEDS: Loratadine 10 MG Tab PO SCH ×2 (08:42→21:18)
[2018-05-06 09:59] LABS: CHLORIDE,CL 103 mmol/L (98-107); SODIUM,NA 139 mmol/L (136-148)
--- NOTE | 2018-05-06 12:02 | PCM.PN ---
- General Info Date of Service: 05/06/18 - Review of Systems Systems Review Comment:: feeling better denies any fever - Patient Data Vitals - Most Recent: Last Vital Signs Temp 37.0 C 05/06/18 07:30 Pulse 86 05/06/18 07:30 Resp 16 05/06/18 07:30 BP 150/80 H 05/06/18 07:30 Pulse Ox 94 L 05/06/18 07:30 Weight - Most Recent: 143.925 kg I&O - Last 24 Hours: Intake & Output 05/05/18 05/06/18 05/06/18 22:59 06:59 14:59 Intake Total 2120 620 800 Output Total 3300 500 Balance -1180 120 800 Lab Results Last 24 Hours: Laboratory Results - last 24 hr 05/06/18 05/06/18 Range/Units 09:09 09:09 WBC 3.78 L (4.0-11.0) K/uL RBC 4.54 (4.50-5.90) M/uL Hgb 13.0 (13.0-17.0) g/dL Hct 37.7 L (38.0-50.0) % MCV 83.0 (80.0-98.0) fL MCH 28.6 (27.0-32.0) pg MCHC 34.5 (31.0-37.0) g/dL RDW Std Deviation 40.5 (28.0-62.0) fl RDW Coeff of Enma 13 (11.0-15.0) % Plt Count 118 L (150-400) K/uL MPV 9.30 (7.40-12.00) fL Add Manual Diff YES Neutrophils % (Manual) 54 (48.0-80.0) % Band Neutrophils % 12 % Lymphocytes % (Manual) 17 (16.0-40.0) % Monocytes % (Manual) 17 H (0.0-15.0) % Nucleated RBC % 0.0 /100WBC Absolute Seg Neuts 2.0 (1.4-5.7) Band Neutrophils # 0.5 Lymphocytes # (Manual) 0.6 (0.6-2.4) Monocytes # (Manual) 0.6 (0.0-0.8) Nucleated RBCs # 0 K/uL Sodium 139 (136-148) mmol/L Potassium 3.9 (3.5-5.1) mmol/L Chloride 103 (98-107) mmol/L Carbon Dioxide 27.2 (21.0-32.0) mmol/L BUN 3 L (7.0-18.0) mg/dL Creatinine 0.8 (0.8-1.3) mg/dL Est Cr Clr Drug Dosing 138.57 mL/min Estimated GFR (MDRD) > 60.0 ml/min Glucose 103 (74-106) mg/dL Calcium 8.9 (8.5-10.1) mg/dL [facility] Results Last 24 Hours: Microbiology 05/04/18 21:00 Quick Strep Confirmation Culture - Final Throat Group A Streptococcus Rapid Screen - Final NEGATIVE STREP A SCREEN 05/04/18 21:00 Urine Culture - Final Urine, Clean Catch MIXED QUINTIN 1,000-10,000 CFU/ML 05/04/18 21:10 Aerobic Blood Culture - Preliminary Blood - Venous - Lab Draw NO GROWTH AFTER 1 DAY Anaerobic Blood Culture - Preliminary NO GROWTH AFTER 1 DAY 05/04/18 21:00 Aerobic Blood Culture - Preliminary Blood - Venous NO GROWTH AFTER 1 DAY Anaerobic Blood Culture - Preliminary NO GROWTH AFTER 1 DAY Med Orders - Current: Current Medications Acetaminophen (Tylenol) 650 mg PO Q4H PRN PRN Reason: Fever Last Admin: 05/05/18 19:52 Dose: 650 mg Heparin Sodium (Porcine) (Heparin Sodium) 5,000 units SUBCUT Q8H [facility] Last Admin: 05/06/18 07:20 Dose: Not Given Piperacillin Sod/Tazobactam (Sod 4.5 gm/ Sodium Chloride) 100 mls @ 100 mls/hr IV Q6H [facility] Last Admin: 05/06/18 11:25 Dose: 100 mls/hr Loratadine (Claritin) 10 mg PO BID [facility] Last Admin: 05/06/18 08:42 Dose: 10 mg Sodium Chloride ([place] Nasal [place]) 0 ml ADAM Q2H PRN PRN Reason: Dry nose Last Admin: 05/05/18 22:08 Dose: 1 spray Discontinued Medications Acetaminophen (Tylenol Extra Strength) 1,000 mg PO ONETIME ONE Stop: 05/04/18 21:24 Last Admin: 05/04/18 21:31 Dose: 1,000 mg Acetaminophen (Tylenol) 650 mg PO Q6H PRN PRN Reason: Fever Last Admin: 05/05/18 07:36 Dose: 650 mg Sodium Chloride (Normal Saline) 1,000 mls @ 999 mls/hr IV STAT ONE Stop: 05/04/18 21:55 Last Admin: 05/04/18 21:10 Dose: 999 mls/hr Piperacillin Sod/Tazobactam (Sod 4.5 gm/ Sodium Chloride) 100 mls @ 100 mls/hr IV ONETIME ONE Stop: 05/04/18 23:34 Last Admin: 05/04/18 22:48 Dose: 100 mls/hr Ibuprofen (Motrin) 800 mg PO ONETIME ONE Stop: 05/04/18 20:56 Last Admin: 05/04/18 21:46 Dose: Not Given Ibuprofen (Motrin) 400 mg PO ONETIME ONE Stop: 05/04/18 21:24 Last Admin: 05/04/18 21:31 Dose: 400 mg - Exam General: Alert, Oriented Lungs: Clear to Auscultation, Normal Respiratory Effort Cardiovascular: Regular Rate, Regular Rhythm Extremities: Non-Tender, No Pedal Edema Skin: Warm, Dry, Intact - Problem List Review Problem List Initiated/Reviewed/Updated: Yes - My Orders Last 24 Hours: My Active Orders 05/05/18 21:42 Sodium Chloride 0.65% [[place] Nasal [place]] 0 ml ADAM Q2H PRN 05/07/18 05:11 BASIC METABOLIC PANEL,BMP [CHEM] AM CBC WITH AUTO DIFF [HEME] AM 05/08/18 05:11 BASIC METABOLIC PANEL,BMP [CHEM] AM CBC WITH AUTO DIFF [HEME] AM - Plan Plan:: 33 -year-old male admitted for neutropenic fever. ANC today is 2, 019. Patient is eager to go home. If he remains afebrile today will discharge tonight on oral Levaquin.
--- NOTE | 2018-05-06 19:07 | PCM.DCSUM1 ---
Discharge Summary - Hospital Course HPI Initial Comments: Discharge Summary Date of admission: 05/04/18 Date of discharge: 05/06/18 Admitting diagnosis: #1. Neutropenic fever secondary to chemotherapy with past medical history of osteosarcoma #2. ANC less than 800 #3. #4. #5. Discharge diagnoses: #1. Neutropenic fever now resolved #2. ANC greater than 2000 #3. #4. #5. Consultations: None Procedures: None Hospitalization course: Patient was admitted secondary to neutropenic fever, he was started on IV Zosyn for prophylactic control, blood cultures were drawn and were negative, patient on day 2 of admission was noted to have elevated temperatures greater than 100.4 with his last temperature being at 1800 on . On 05/06/18 patient's ANC had noted to have risen greater than 2000, and he was afebrile for 24 hours and was noted to be stable enough to be subsequently discharged. Patient was discharged home with Levaquin 750 mg daily for 7 days and follow-up appointment with his oncologist and primary care physician. Diagnosis: Stroke: No Modified [place] Scale: No Symptoms at All Modified Myles Scale Score: 0 - Discharge Data Discharge Date: 05/06/18 Discharge Disposition: Home, Self-Care 01 Condition: Fair - Patient Instructions Diet: Usual Diet as Tolerated Activity: As Tolerated Driving: Do Not Drive Showering/Bathing: May Shower Notify Provider of: Fever, Increased Pain, Swelling and Redness, Nausea and/or Vomiting - Discharge Plan Prescriptions/Med Rec: Levofloxacin [Levaquin] 750 mg PO DAILY 7 Days #7 tablet Home Medications: Home Meds Acetaminophen [Pain Reliever] 500 mg PO BID 05/04/18 [History] Cannabidiol (Cbd) Extract [Epidiolex] 100 mg PO DAILY 05/04/18 [History] Cholecalciferol (Vitamin D3) [Vitamin D] 5,000 unit PO DAILY 05/04/18 [History] Multivitamin [Multi-Vitamin Daily] 1 each PO DAILY 05/04/18 [History] Levofloxacin [Levaquin] 750 mg PO DAILY 7 Days #7 tablet 05/06/18 [Rx] Loratadine [Claritin] 10 mg PO BID tablet 05/06/18 [Rx] Oxygen Therapy Mode: Room Air Patient Handouts: Neutropenia Referrals: Neftali Muller MD [Ordering Only Provider] - Charli Hoover MD [Physician] - - Discharge Summary/Plan Comment DC Time >30 min.: No - Patient Data Vitals - Most Recent: Last Vital Signs Temp 36.9 C 05/06/18 16:00 Pulse 102 H 05/06/18 16:00 Resp 18 05/06/18 16:00 BP 157/92 H 05/06/18 16:00 Pulse Ox 95 05/06/18 16:00 Weight - Most Recent: 143 kg I&O - Last 24 hours: Intake & Output 05/06/18 05/06/18 05/06/18 06:59 14:59 22:59 Intake Total 977 580 3237 Output Total 500 1350 Balance 120 800 50 Lab Results - Last 24 hrs: Laboratory Results - last 24 hr 05/06/18 05/06/18 Range/Units 09:09 09:09 WBC 3.78 L (4.0-11.0) K/uL RBC 4.54 (4.50-5.90) M/uL Hgb 13.0 (13.0-17.0) g/dL Hct 37.7 L (38.0-50.0) % MCV 83.0 (80.0-98.0) fL MCH 28.6 (27.0-32.0) pg MCHC 34.5 (31.0-37.0) g/dL RDW Std Deviation 40.5 (28.0-62.0) fl RDW Coeff of Enma 13 (11.0-15.0) % Plt Count 118 L (150-400) K/uL MPV 9.30 (7.40-12.00) fL Add Manual Diff YES Neutrophils % (Manual) 54 (48.0-80.0) % Band Neutrophils % 12 % Lymphocytes % (Manual) 17 (16.0-40.0) % Monocytes % (Manual) 17 H (0.0-15.0) % Nucleated RBC % 0.0 /100WBC Absolute Seg Neuts 2.0 (1.4-5.7) Band Neutrophils # 0.5 Lymphocytes # (Manual) 0.6 (0.6-2.4) Monocytes # (Manual) 0.6 (0.0-0.8) Nucleated RBCs # 0 K/uL Sodium 139 (136-148) mmol/L Potassium 3.9 (3.5-5.1) mmol/L Chloride 103 (98-107) mmol/L Carbon Dioxide 27.2 (21.0-32.0) mmol/L BUN 3 L (7.0-18.0) mg/dL Creatinine 0.8 (0.8-1.3) mg/dL Est Cr Clr Drug Dosing 138.57 mL/min Estimated GFR (MDRD) > 60.0 ml/min Glucose 103 (74-106) mg/dL Calcium 8.9 (8.5-10.1) mg/dL FATEMEH Results - Last 24 hrs: Microbiology 05/04/18 21:00 Quick Strep Confirmation Culture - Final Throat Group A Streptococcus Rapid Screen - Final NEGATIVE STREP A SCREEN 05/04/18 21:00 Urine Culture - Final Urine, Clean Catch MIXED QUINTIN 1,000-10,000 CFU/ML 05/04/18 21:10 Aerobic Blood Culture - Preliminary Blood - Venous - Lab Draw NO GROWTH AFTER 1 DAY Anaerobic Blood Culture - Preliminary NO GROWTH AFTER 1 DAY 05/04/18 21:00 Aerobic Blood Culture - Preliminary Blood - Venous NO GROWTH AFTER 1 DAY Anaerobic Blood Culture - Preliminary NO GROWTH AFTER 1 DAY Med Orders - Current: Current Medications Acetaminophen (Tylenol) 650 mg PO Q4H PRN PRN Reason: Fever Last Admin: 05/05/18 19:52 Dose: 650 mg Heparin Sodium (Porcine) (Heparin Sodium) 5,000 units SUBCUT Q8H [facility] Last Admin: 05/06/18 14:45 Dose: Not Given Piperacillin Sod/Tazobactam (Sod 4.5 gm/ Sodium Chloride) 100 mls @ 100 mls/hr IV Q6H [facility] Last Admin: 05/06/18 18:15 Dose: 100 mls/hr Loratadine (Claritin) 10 mg PO BID [facility] Last Admin: 05/06/18 08:42 Dose: 10 mg Sodium Chloride ([place] Nasal [place]) 0 ml ADAM Q2H PRN PRN Reason: Dry nose Last Admin: 05/05/18 22:08 Dose: 1 spray Discontinued Medications Acetaminophen (Tylenol Extra Strength) 1,000 mg PO ONETIME ONE Stop: 05/04/18 21:24 Last Admin: 05/04/18 21:31 Dose: 1,000 mg Acetaminophen (Tylenol) 650 mg PO Q6H PRN PRN Reason: Fever Last Admin: 05/05/18 07:36 Dose: 650 mg Sodium Chloride (Normal Saline) 1,000 mls @ 999 mls/hr IV STAT ONE Stop: 05/04/18 21:55 Last Admin: 05/04/18 21:10 Dose: 999 mls/hr Piperacillin Sod/Tazobactam (Sod 4.5 gm/ Sodium Chloride) 100 mls @ 100 mls/hr IV ONETIME ONE Stop: 05/04/18 23:34 Last Admin: 05/04/18 22:48 Dose: 100 mls/hr Ibuprofen (Motrin) 800 mg PO ONETIME ONE Stop: 05/04/18 20:56 Last Admin: 05/04/18 21:46 Dose: Not Given Ibuprofen (Motrin) 400 mg PO ONETIME ONE Stop: 05/04/18 21:24 Last Admin: 05/04/18 21:31 Dose: 400 mg
== END 2018-05-06 20:45 | disposition home or self-care (01) | DRG 660 ==
LOC: MW.ED 20:29 → MW.MS 22:57
PROVIDERS: ADMIT Internal Medicine; ATTEND Internal Medicine
DX: D70.1 Agranulocytosis secondary to cancer chemotherapy (principal); C40.21 Malignant neoplasm of long bones of right lower limb; Z68.41 Body mass index [BMI] 40.0-44.9, adult; T45.1X5A Adverse effect of antineoplastic and immunosuppressive drugs, initial encounter; R50.81 Fever presenting with conditions classified elsewhere; J45.909 Unspecified asthma, uncomplicated; E66.9 Obesity, unspecified; Z98.84 Bariatric surgery status; Z88.1 Allergy status to other antibiotic agents; Z79.899 Other long term (current) drug therapy; Z79.890 Hormone replacement therapy; Z88.8 Allergy status to other drugs, medicaments and biological substances; Z91.048 Other nonmedicinal substance allergy status
CPT/HCPCS: 36415; 71046; 71046-26; 80048; 80053; 81001; 83605; 85025; 87040; 87081; 87086; 87804; 87880-QW; 96361; 96365; 99283; 99284-25; A9270-GY; J2543; J7030; J7040

== ENCOUNTER 2018-12-21 07:02 | Day surgery (SDC) | payer BC ==
[~2018-12-21 07:02] MED LIST: Clindamycin Phosphate in D5W 600 MG in Premix Bag 1 BAG IV ONE; Lactated Ringers 1,000 ML IV SCH; Midazolam 1 MG/ML 2 ML SDV ONE; Propofol 200 MG/20 ML SDV ONE; Sodium Chloride 0.9% 10 ML SDV IV PRN; Sodium Chloride 0.9% 10 ML Syringe FLUSH PRN; Sodium Chloride 0.9% 2.5 ML Syringe FLUSH PRN
[2018-12-21] MEDS ORDERED: Bupivacaine 0.5% 30 ML SDV ONE ×2 (07:15→07:21)
[2018-12-21] MEDS ORDERED: Lidocaine 1% 50 ML MDV ONE (07:16)
[2018-12-21] MEDS ORDERED: Lidocaine 1% 20 ML MDV ONE (07:22)
--- NOTE | 2018-12-21 07:28 | PCM.PREANE ---
Preanesthetic Assessment - Anesthesia/Transfusion/Family Hx Anesthesia History: Prior Anesthesia Without Reaction Family History of Anesthesia Reaction: No Transfusion History: No Prior Transfusion(s) Intubation History: Unknown - Review of Systems General: No Symptoms Pulmonary: No Symptoms Cardiovascular: No Symptoms Gastrointestinal: No Symptoms Neurological: No Symptoms - Physical Assessment Height: 5 ft 11 in Weight: 146.057 kg ASA Class: 2 Mental Status: Alert & Oriented x3 Airway Class: Mallampati = 2 Dentition: Reports: Normal Dentition Thyro-Mental Finger Breadths: 3 Mouth Opening Finger Breadths: 3 ROM/Head Extension: Full Lungs: Clear to Auscultation, Normal Respiratory Effort Cardiovascular: Regular Rate, Regular Rhythm - Allergies Allergies/Adverse Reactions: Allergies Allergy/AdvReac Type Severity Reaction Status Date / Time cat dander Allergy Sneezing Verified 12/14/18 08:32 cephalexin [From Keflex] Allergy Anaphylactic Verified 12/14/18 08:32 Shock enoxaparin [From Lovenox] Allergy Disorientat Verified 12/14/18 08:32 ion grass pollen Allergy Sneezing Verified 12/14/18 08:32 - Blood Blood Available: No - Anesthesia Plan Pre-Op Medication Ordered: None - Acknowledgements Anesthesia Type Planned: MAC Pt an Appropriate Candidate for the Planned Anesthesia: Yes Alternatives and Risks of Anesthesia Discussed w Pt/Guardian: Yes Pt/Guardian Understands and Agrees with Anesthesia Plan: Yes PreAnesthesia Questionnaire HEENT History: Reports: None Cardiovascular History: Reports: Other (See Below) Other Cardiovascular History: HTN during chemo Respiratory History: Reports: Asthma Gastrointestinal History: Reports: Other (See Below) Other Gastrointestinal History: occasional heartburn relieved with OTC omeprazole Genitourinary History: Reports: None Musculoskeletal History: Reports: Back Pain, Chronic Other Musculoskeletal History: "crushed vertebrae" Neurological History: Reports: Neuropathy, 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 Psychiatric History: Reports: None Endocrine/Metabolic History: Reports: Obesity/BMI 30+ (BMI 44.9) Hematologic History: Reports: None Immunologic History: Reports: None Oncologic (Cancer) History: Reports: Other (See Below) 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, hematoma removal Dermatologic History: Reports: None - Past Surgical History Head Surgeries/Procedures: Reports: None HEENT Surgical History: Reports: Oral Surgery Cardiovascular Surgical History: Reports: None Respiratory Surgical History: Reports: None GI Surgical History: Reports: Bariatric Procedure (laparoscopic band, has issues with it) Other GI Surgeries/Procedures: lap band procedure Male Surgical History: Reports: None Endocrine Surgical History: Reports: None Neurological Surgical History: Reports: None Musculoskeletal Surgical History: Reports: None Oncologic Surgical History: Reports: None, Other (See Below) (exc. of Peres sarcoma from right tigh) Dermatological Surgical History: Reports: None - SUBSTANCE USE Smoking Status *Q: Never Smoker - HOME MEDS Home Medications: Home Meds Acetaminophen [Pain Reliever] 2 tab PO ASDIRECTED PRN 05/04/18 [History] Cholecalciferol (Vitamin D3) [Vitamin D] 2,000 unit PO DAILY 05/04/18 [History] Multivitamin [Multi-Vitamin Daily] 1 each PO DAILY 05/04/18 [History] Albuterol [Ventolin HFA] 1 puff INH ASDIRECTED PRN 12/14/18 [History] Fish Oil/DHA/EPA [Fish Oil 1,200 MG] 1,200 mg PO BID 12/14/18 [History] Loratadine [Claritin] 10 mg PO ASDIRECTED PRN 12/14/18 [History] Omeprazole 20 mg PO ASDIRECTED PRN 12/14/18 [History] Vitamin E Mixed [Vitamin E] 1,000 units PO DAILY 12/14/18 [History] - CURRENT (IN HOUSE) MEDS Current Meds: Current Medications Lactated Ringer's (Ringers, Lactated) 1,000 mls @ 125 mls/hr IV ASDIRECTED NANCIE Sodium Chloride (Saline Flush) 10 ml FLUSH ASDIRECTED PRN PRN Reason: Keep Vein Open Sodium Chloride (Saline Flush) 2.5 ml FLUSH ASDIRECTED PRN PRN Reason: Keep Vein Open Sodium Chloride (Normal Saline) 10 ml IV ASDIRECTED PRN PRN Reason: IV Use Discontinued Medications Bupivacaine HCl (Marcaine 0.5%) Confirm Administered Dose 30 ml .ROUTE .STK-MED ONE Stop: 12/21/18 07:16 Bupivacaine HCl (Marcaine 0.5%) Confirm Administered Dose 30 ml .ROUTE .STK-MED ONE Stop: 12/21/18 07:22 Clindamycin Phosphate 600 mg/ (Premix) 50 mls @ 100 mls/hr IV ONETIME ONE Stop: 12/18/18 13:05 Lidocaine HCl (Xylocaine 1%) Confirm Administered Dose 50 ml .ROUTE .STK-MED ONE Stop: 12/21/18 07:17 Lidocaine HCl (Xylocaine 1%) Confirm Administered Dose 20 ml .ROUTE .STK-MED ONE Stop: 12/21/18 07:23 Midazolam HCl (Versed 1 Mg/Ml) Confirm Administered Dose 2 mg .ROUTE .STK-MED ONE Stop: 12/21/18 07:02 Propofol (Diprivan 20 Ml) Confirm Administered Dose 200 mg .ROUTE .STK-MED ONE Stop: 12/21/18 07:02
[2018-12-21] MEDS ORDERED: ceFAZolin 1 GM Vial ONE (07:59)
[2018-12-21] MEDS ORDERED: Sodium Chloride 0.9% 20 ML ONE (07:59)
[2018-12-21] MEDS ORDERED: Clindamycin Phosphate in D5W 50 ML ONE (08:03)
[2018-12-21] MEDS ORDERED: Propofol 200 MG/20 ML SDV ONE ×3 (08:07→08:27)
[2018-12-21] MEDS ORDERED: fentaNYL 100 MCG/2 ML SDV ONE (08:17)
--- NOTE | 2018-12-21 08:48 | PCM.OPNOTE ---
- General Post-Op/Procedure Note Date of Surgery/Procedure: 12/21/18 Operative Procedure(s): Port a cath removal Findings: Right IJ port a cath Pre Op Diagnosis: Ewings Sarcoma Post-Op Diagnosis: same Anesthesia Technique: Local, MAC Primary Surgeon: Carla Slater Fluid Replacement, Intraop: 600 EBL in mLs: 2 Condition: Good
--- NOTE | 2018-12-21 09:22 | PCM.POSTAN ---
POST ANESTHESIA ASSESSMENT - MENTAL STATUS Mental Status: Alert, Oriented - VITAL SIGNS Vital Signs: Last Vital Signs Temp 36.6 C 12/21/18 08:43 Pulse 74 12/21/18 09:00 Resp 16 12/21/18 09:00 BP 119/63 12/21/18 09:00 Pulse Ox 95 12/21/18 09:00 - RESPIRATORY Respiratory Status: Respiratory Rate WNL, Airway Patent, O2 Saturation Stable - CARDIOVASCULAR CV Status: Pulse Rate WNL, Blood Pressure Stable - GASTROINTESTINAL GI Status: No Symptoms - PAIN Pain Score: 0 - POST OP HYDRATION Hydration Status: Adequate & Stable - OBSERVATIONS Free Text/Narrative:: no anesthesia problems
--- NOTE | 2018-12-21 09:29 | PCM48HPAN ---
Post Anesthesia Note - EVALUATION WITHIN 48HRS OF ANESTHETIC Vital Signs in Normal Range: Yes Patient Participated in Evaluation: Yes Respiratory Function Stable: Yes Airway Patent: Yes Cardiovascular Function Stable: Yes Hydration Status Stable: Yes Pain Control Satisfactory: Yes Nausea and Vomiting Control Satisfactory: Yes Mental Status Recovered: Yes Vital Signs: Last Vital Signs Temp 36.6 C 12/21/18 08:43 Pulse 74 12/21/18 09:00 Resp 16 12/21/18 09:00 BP 119/63 12/21/18 09:00 Pulse Ox 95 12/21/18 09:00 - COMMENTS/OBSERVATIONS Free Text/Narrative:: no anesthesia problems
--- NOTE | 2018-12-21 14:46 | OR ---
SURGEON: CARLA SLATER MD DATE OF PROCEDURE: 12/21/2018 PREOPERATIVE DIAGNOSIS: Peres sarcoma. POSTOPERATIVE DIAGNOSIS: Peres sarcoma. PROCEDURE PERFORMED: Removal right IJ Port-A-Cath. PRIMARY SURGEON: Carla Slater MD. ANESTHESIA: MAC, local. FLUIDS: 600 mL crystalloid. ESTIMATED BLOOD LOSS: 2 mL. FINDINGS: Intact right IJ Port-A-Cath. COMPLICATIONS: None. INDICATIONS: The patient is a 33-year-old male who was diagnosed with Peres sarcoma. He has completed treatment and would like to have his Port-A-Cath removed. I explained the procedure, expected perioperative course, and risks including bleeding, infection, or damage to surrounding structures. The patient verbalized understanding and wishes to proceed. PROCEDURE IN DETAIL: The patient was brought to the OR and placed on the OR table in supine position. A time-out was completed verifying the patient's name, age, date of , allergies, and procedure to be performed. Monitored anesthesia care was induced and continuous oxygen was provided via nasal cannula. The chest and neck were prepped and draped in usual standard fashion. I anesthetized the area overlying his previous Port-A-Cath scar with 0.5% Marcaine plain mixed with 1% lidocaine plain. A 15 blade was used to make an elliptical incision over his previous scar. I then undermined this using cautery and removed it from the field. I then used cautery to dissect down to the level of the scar capsule around the Port-A-Cath device. The Port-A-Cath device was elevated with clamp and I dissected it free from the scar capsule using electrocautery. The Port-A-Cath device was elevated from the operative field. I then applied gentle pressure and pulled the Port-A-Cath and its associated tubing out of the wound. Pressure was held at the neck for approximately 1 minute. Pressure was released and I inspected my operative field. Hemostasis was achieved with electrocautery. I then irrigated the wound with normal saline. The wound was closed with interrupted layers of 3-0 Vicryl sutures in the subcutaneous fat layer and the skin was closed with a running 4-0 Monocryl stitch. Steri-Strips and sterile dressings were applied. The patient tolerated the procedure well and was taken to PACU in stable condition. All counts were complete and correct at the end of the case. LEMEASH / MODL /[id number]
== END 2018-12-21 09:35 | disposition home or self-care (01) ==
LOC: MW.SDS 07:02
PROVIDERS: ATTEND Surgery
DX: Z45.2 Encounter for adjustment and management of vascular access device (principal); C40.20 Malignant neoplasm of long bones of unspecified lower limb; I10 Essential (primary) hypertension; J45.909 Unspecified asthma, uncomplicated; Z88.1 Allergy status to other antibiotic agents; Z91.09 Other allergy status, other than to drugs and biological substances; Z87.891 Personal history of nicotine dependence; Z79.899 Other long term (current) drug therapy
CPT/HCPCS: 36590; J2001; J2704; J3010; J3490; J7120; J0690; J2250

== ENCOUNTER 2019-08-20 10:35 | Emergency (ER) | payer BC, MEDICAID ==
[2019-08-20] MEDS ORDERED: Sodium Chloride 0.9% 10 ML Syringe FLUSH PRN (10:43)
[2019-08-20] MEDS ORDERED: Sodium Chloride 0.9% 2.5 ML Syringe FLUSH PRN (10:43)
--- NOTE | 2019-08-20 10:47 | EDM.PDOC ---
ED HPI GENERAL MEDICAL PROBLEM - General Chief Complaint: General Stated Complaint: FATIGUE/MEMORY LOSS Time Seen by Provider: 08/20/19 10:44 Source of Information: Reports: Patient History Limitations: Reports: No Limitations - History of Present Illness INITIAL COMMENTS - FREE TEXT/NARRATIVE: HISTORY AND PHYSICAL: History of present illness: Patient is a 34-year-old male who presents to the emergency room with complaints of fatigue and memory loss. Patient reports that he was in [place] on 08/15/2019 and he had his first episode where he "was out of it for a while" in which he describes not remembering what he was doing or why he was doing it. He states he did make it home and felt improved. Since that time he has had several more episodes which last anywhere from a few minutes to nearly an hour. During these episodes he denies having any weakness, slurred speech, headache, change in vision or deficits. Today when he had an episode he did have some dizziness associated with it along with extreme fatigue. During our interview he is alert, oriented and answering questions appropriately. He is fully ambulatory without any deficits noted. Neurologically intact. Patient denies any fever, chills, headache, change in vision, syncope or near syncope. Denies any chest pain, back pain, shortness of breath or cough. Denies any abdominal pain, nausea, vomiting, diarrhea, constipation or dysuria. Has not noted any blood in urine or stool. Patient has been eating and drinking appropriately. Denies any alcohol or drug abuse. Patient does have a history of asthma and bariatric surgery. He had an Peres sarcoma of the right femur. He received oncology services with Dr. Neftali Muller. Patient did have radiation therapy which was completed approximately a year ago. Since that time he has had repeat imaging which states he is doing well. Otherwise patient states he is healthy and only takes supplements, no prescription medications. Denies any new or recent changes in his diet. Review of systems: As per history of present illness and below otherwise all systems reviewed and negative. Past medical history: As per history of present illness and as reviewed below otherwise noncontributory. Surgical history: As per history of present illness and as reviewed below otherwise noncontributory. Social history: See social history for further information Family history: As per history of present illness and as reviewed below otherwise noncontributory. Physical exam: General: Well-developed and well-nourished 34-year-old male. Alert and or iented. Nontoxic-appearing and in no acute distress. HEENT: Atraumatic, normocephalic, pupils equal and reactive bilaterally, negative for conjunctival pallor or scleral icterus, mucous membranes moist, TMs normal bilaterally, throat clear, neck supple, nontender, trachea midline. No drooling or trismus noted. No meningeal signs. No hot potato voice noted. Lungs: Clear to auscultation, breath sounds equal bilaterally, chest nontender. Heart: S1S2, regular rate and rhythm without overt murmur Abdomen: Soft, nondistended, nontender. Negative for masses or hepatosplenomegaly. Negative for costovertebral tenderness. Pelvis: Stable nontender. Skin: Intact, warm, dry. No lesions or rashes noted. Extremities: Atraumatic, moves all extremities per self without difficulty or deficits, negative for cords or calf pain. Neurovascular unremarkable. Neuro: Awake, alert, oriented. Cranial nerves II through XII unremarkable. Cerebellum unremarkable. Motor and sensory unremarkable throughout. Exam no nfocal. Notes: Patient's states that he did have an episode of this in April in which he did seek evaluation by his oncologist. They did refer him to psychiatry and talked about this possibly being PTSD related to his cancer diagnoses/treatment and possibly anxiety. She states that he has not had a another episode of this until this last Tuesday. Patient did recently lose his job which is an increased stressor. EKG was done at 1044 which shows a sinus rhythm with a rate of 70. No previous EKG for comparison. No significant findings are noted. Patient's lab work is unremarkable. No concerns noted on head CT or CXR. He has been alert, oriented and answering questions appropriately while here in the emergency department. His vital signs have been stable. We discussed the diagnostics and need for follow-up with his oncologist or primary care provider. Supportive care measures were reviewed and discussed. Voices understanding and is agreeable to plan of care. Denies any further questions or concerns at this time. Diagnostics: CBC, CMP, UA, EKG, 1 view chest, head CT, TSH, magnesium Therapeutics: IV fluid Prescription: None Impression: Encounter for medical screening examination Confusion, resolved Plan: 1. Your tests that was done today which included a CBC, chemistry, urine studies, EKG, thyroid, head CT were all within normal limits. I would like you to follow-up with your primary care provider, oncologist or psychiatrist to be further evaluated for your concerns today. If at any time your symptoms worsen or new symptoms develop please return to the emergency room for repeat evaluation. 2. Attached to your discharge packet is a copy of all your lab work and imaging. Please bring this to your follow-up appointment. Definitive disposition and diagnosis as appropriate pending reevaluation and review of above. - Related Data Allergies Allergy/AdvReac Type Severity Reaction Status Date / Time cat dander Allergy Sneezing Verified 08/20/19 10:41 cephalexin [From Keflex] Allergy Anaphylactic Verified 08/20/19 10:41 Shock enoxaparin [From Lovenox] Allergy Disorientat Verified 08/20/19 10:41 ion grass pollen Allergy Sneezing Verified 08/20/19 10:41 Home Meds: Home Meds Acetaminophen [Pain Reliever] 2 tab PO ASDIRECTED PRN 05/04/18 [History] Cholecalciferol (Vitamin D3) [Vitamin D] 2,000 unit PO DAILY 05/04/18 [History] Multivitamin [Multi-Vitamin Daily] 1 each PO DAILY 05/04/18 [History] Albuterol [Ventolin HFA] 1 puff INH ASDIRECTED PRN 12/14/18 [History] Fish Oil/DHA/EPA [Fish Oil 1,200 MG] 1,200 mg PO BID 12/14/18 [History] Loratadine [Claritin] 10 mg PO ASDIRECTED PRN 12/14/18 [History] Omeprazole 20 mg PO ASDIRECTED PRN 12/14/18 [History] Vitamin E Mixed [Vitamin E] 1,000 units PO DAILY 12/14/18 [History] Past Medical History HEENT History: Reports: None Cardiovascular History: Reports: Other (See Below) Other Cardiovascular History: HTN during chemo Respiratory History: Reports: Asthma Gastrointestinal History: Reports: Other (See Below) Other Gastrointestinal History: occasional heartburn relieved with OTC omeprazole Genitourinary History: Reports: None Musculoskeletal History: Reports: Back Pain, Chronic Other Musculoskeletal History: "crushed vertebrae" Neurological History: Reports: Neuropathy, 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 Psychiatric History: Reports: None Endocrine/Metabolic History: Reports: Obesity/BMI 30+ Hematologic History: Reports: None Immunologic History: Reports: None Oncologic (Cancer) History: Reports: Other (See Below) 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, hematoma removal Dermatologic History: Reports: None - Past Surgical History Head Surgeries/Procedures: Reports: None Cardiovascular Surgical History: Reports: None Respiratory Surgical History: Reports: None GI Surgical History: Reports: Bariatric Procedure Other GI Surgeries/Procedures: lap band procedure Male Surgical History: Reports: None Endocrine Surgical History: Reports: None Neurological Surgical History: Reports: None Musculoskeletal Surgical History: Reports: None Oncologic Surgical History: Reports: None, Other (See Below) Dermatological Surgical History: Reports: None Social & Family History - Family History Family Medical History: Noncontributory - Caffeine Use Caffeine Use: Reports: None ED ROS GENERAL - Review of Systems Review Of Systems: Comprehensive ROS is negative, except as noted in HPI. ED EXAM, GENERAL - Physical Exam Exam: See Below (See dictation) Course - Vital Signs Last Recorded V/S: Last Vital Signs Temp 97.8 F 08/20/19 10:38 Pulse 79 08/20/19 10:38 Resp 17 08/20/19 10:38 BP 161/103 H 08/20/19 10:38 Pulse Ox 97 08/20/19 10:38 - Orders/Labs/Meds Orders: Active Orders 24 hr Category Date Time Status EKG Documentation Completion [RC] STAT Care 08/20/19 10:43 Active Sodium Chloride 0.9% [Saline Flush] Med 08/20/19 10:43 Active 10 ml FLUSH ASDIRECTED PRN Sodium Chloride 0.9% [Saline Flush] Med 08/20/19 10:43 Active 2.5 ml FLUSH ASDIRECTED PRN Saline Lock Insert [OM.PC] Stat Oth 08/20/19 10:43 Ordered Medication Orders Sodium Chloride (Saline Flush) 10 ml FLUSH ASDIRECTED PRN PRN Reason: Keep Vein Open Sodium Chloride (Saline Flush) 2.5 ml FLUSH ASDIRECTED PRN PRN Reason: Keep Vein Open Labs: Laboratory Tests 08/20/19 08/20/19 08/20/19 Range/Units 10:45 10:45 10:45 WBC 7.51 (4.0-11.0) K/uL RBC 5.21 (4.50-5.90) M/uL Hgb 16.6 (13.0-17.0) g/dL Hct 47.2 (38.0-50.0) % MCV 90.6 (80.0-98.0) fL MCH 31.9 (27.0-32.0) pg MCHC 35.2 (31.0-37.0) g/dL RDW Std Deviation 43.1 (28.0-62.0) fl RDW Coeff of Enma 13 (11.0-15.0) % Plt Count 179 (150-400) K/uL MPV 9.10 (7.40-12.00) fL Neut % (Auto) 67.7 (48.0-80.0) % Lymph % (Auto) 24.6 (16.0-40.0) % Lake % (Auto) 5.3 (0.0-15.0) % Eos % (Auto) 1.9 (0.0-7.0) % Baso % (Auto) 0.5 (0.0-1.5) % Neut # (Auto) 5.1 (1.4-5.7) K/uL Lymph # (Auto) 1.9 (0.6-2.4) K/uL Lake # (Auto) 0.4 (0.0-0.8) K/uL Eos # (Auto) 0.1 (0.0-0.7) K/uL Baso # (Auto) 0.0 (0.0-0.1) K/uL Nucleated RBC % 0.0 /100WBC Nucleated RBCs # 0 K/uL Sodium 140 (136-148) mmol/L Potassium 4.0 (3.5-5.1) mmol/L Chloride 102 (98-107) mmol/L Carbon Dioxide 26.3 (21.0-32.0) mmol/L BUN 15 (7.0-18.0) mg/dL Creatinine 1.0 (0.8-1.3) mg/dL Est Cr Clr Drug Dosing 109.81 mL/min Estimated GFR (MDRD) > 60.0 ml/min Glucose 133 H (74-106) mg/dL Calcium 8.9 (8.5-10.1) mg/dL Magnesium 2.2 (1.8-2.4) mg/dL Total Bilirubin 0.6 (0.2-1.0) mg/dL AST 23 (15-37) IU/L ALT 34 (14-63) IU/L Alkaline Phosphatase 98 (46-116) U/L Total Protein 7.7 (6.4-8.2) g/dL Albumin 4.0 (3.4-5.0) g/dL Globulin 3.7 (2.6-4.0) g/dL Albumin/Globulin Ratio 1.1 (0.9-1.6) TSH 3rd Generation 1.27 (0.36-3.74) uIU/mL Urine Color Urine Appearance Urine pH (5.0-8.0) Ur Specific [place] (1.001-1.035) Urine Protein (NEGATIVE) mg/dL Urine Glucose (UA) (NEGATIVE) mg/dL Urine Ketones (NEGATIVE) mg/dL Urine Occult Blood (NEGATIVE) Urine Nitrite (NEGATIVE) Urine Bilirubin (NEGATIVE) Urine Urobilinogen (<2.0) EU/dL Ur Leukocyte Esterase (NEGATIVE) Urine Opiates Screen (NEGATIVE) Ur Oxycodone Screen (NEGATIVE) Urine Methadone Screen (NEGATIVE) Ur Barbiturates Screen (NEGATIVE) Ur Phencyclidine Scrn (NEGATIVE) Ur Amphetamine Screen (NEGATIVE) U Methamphetamines Scrn (NEGATIVE) U Benzodiazepines Scrn (NEGATIVE) U Cocaine Metab Screen (NEGATIVE) U Marijuana (THC) Screen (NEGATIVE) 08/20/19 08/20/19 Range/Units 12:10 12:10 WBC (4.0-11.0) K/uL RBC (4.50-5.90) M/uL Hgb (13.0-17.0) g/dL Hct (38.0-50.0) % MCV (80.0-98.0) fL MCH (27.0-32.0) pg MCHC (31.0-37.0) g/dL RDW Std Deviation (28.0-62.0) fl RDW Coeff of Enma (11.0-15.0) % Plt Count (150-400) K/uL MPV (7.40-12.00) fL Neut % (Auto) (48.0-80.0) % Lymph % (Auto) (16.0-40.0) % Lake % (Auto) (0.0-15.0) % Eos % (Auto) (0.0-7.0) % Baso % (Auto) (0.0-1.5) % Neut # (Auto) (1.4-5.7) K/uL Lymph # (Auto) (0.6-2.4) K/uL Lake # (Auto) (0.0-0.8) K/uL Eos # (Auto) (0.0-0.7) K/uL Baso # (Auto) (0.0-0.1) K/uL Nucleated RBC % /100WBC Nucleated RBCs # K/uL Sodium (136-148) mmol/L Potassium (3.5-5.1) mmol/L Chloride (98-107) mmol/L Carbon Dioxide (21.0-32.0) mmol/L BUN (7.0-18.0) mg/dL Creatinine (0.8-1.3) mg/dL Est Cr Clr Drug Dosing mL/min Estimated GFR (MDRD) ml/min Glucose (74-106) mg/dL Calcium (8.5-10.1) mg/dL Magnesium (1.8-2.4) mg/dL Total Bilirubin (0.2-1.0) mg/dL AST (15-37) IU/L ALT (14-63) IU/L Alkaline Phosphatase (46-116) U/L Total Protein (6.4-8.2) g/dL Albumin (3.4-5.0) g/dL Globulin (2.6-4.0) g/dL Albumin/Globulin Ratio (0.9-1.6) TSH 3rd Generation (0.36-3.74) uIU/mL Urine Color YELLOW Urine Appearance CLEAR Urine pH 7.0 (5.0-8.0) Ur Specific [place] 1.010 (1.001-1.035) Urine Protein NEGATIVE (NEGATIVE) mg/dL Urine Glucose (UA) NEGATIVE (NEGATIVE) mg/dL Urine Ketones NEGATIVE (NEGATIVE) mg/dL Urine Occult Blood NEGATIVE (NEGATIVE) Urine Nitrite NEGATIVE (NEGATIVE) Urine Bilirubin NEGATIVE (NEGATIVE) Urine Urobilinogen 0.2 (<2.0) EU/dL Ur Leukocyte Esterase NEGATIVE (NEGATIVE) Urine Opiates Screen NEGATIVE (NEGATIVE) Ur Oxycodone Screen NEGATIVE (NEGATIVE) Urine Methadone Screen NEGATIVE (NEGATIVE) Ur Barbiturates Screen NEGATIVE (NEGATIVE) Ur Phencyclidine Scrn NEGATIVE (NEGATIVE) Ur Amphetamine Screen NEGATIVE (NEGATIVE) U Methamphetamines Scrn NEGATIVE (NEGATIVE) U Benzodiazepines Scrn NEGATIVE (NEGATIVE) U Cocaine Metab Screen NEGATIVE (NEGATIVE) U Marijuana (THC) Screen POSITIVE (NEGATIVE) Meds: Medications Generic Name Dose Route Start Last Admin Trade Name Freq PRN Reason Stop Dose Admin Sodium Chloride 10 ml 08/20/19 10:43 Saline Flush FLUSH ASDIRECTED PRN Keep Vein Open Sodium Chloride 2.5 ml 08/20/19 10:43 Saline Flush FLUSH ASDIRECTED PRN Keep Vein Open Discontinued Medications Generic Name Dose Route Start Last Admin Trade Name Freq PRN Reason Stop Dose Admin Sodium Chloride 1,000 mls @ 999 mls/hr 08/20/19 10:50 08/20/19 11:08 Normal Saline IV 08/20/19 11:50 999 mls/hr STAT ONE Administration Departure - Departure Time of Disposition: 12:37 Disposition: Home, Self-Care 01 Clinical Impression: Encounter for medical screening examination, Confusion - Discharge Information Referrals: Charli Hoover MD [Primary Care Provider] - Forms: ED Department Discharge Additional Instructions: The following information is given to patients seen in the emergency department who are being discharged to home. This information is to outline your options for follow-up care. We provide all patients seen in our emergency department with a follow-up referral. The need for follow-up, as well as the timing and circumstances, are variable depending upon the specifics of your emergency department visit. If you don't have a primary care physician on staff, we will provide you with a referral. We always advise you to contact your personal physician following an emergency department visit to inform them of the circumstance of the visit and for follow-up with them and/or the need for any referrals to a consulting specialist. The emergency department will also refer you to a specialist when appropriate. This referral assures that you have the opportunity for follow-up care with a specialist. All of these measure are taken in an effort to provide you with optimal care, which includes your follow-up. Under all circumstances we always encourage you to contact your private physician who remains a resource for coordinating your care. When calling for follow-up care, please make the office aware that this follow-up is from your recent emergency room visit. If for any reason you are refused follow-up, please contact the [facility] Emergency Department at and asked to speak to the emergency department charge nurse. [facility] [address] [place] [address] [facility] [address] [place] [id number] 1. Your tests that was done today which included a CBC, chemistry, urine studies, EKG, thyroid, head CT were all within normal limits. I would like you to follow-up with your primary care provider, oncologist or psychiatrist to be further evaluated for your concerns today. If at any time your symptoms worsen or new symptoms develop please return to the emergency room for repeat evaluation. 2. Attached to your discharge packet is a copy of all your lab work and imaging. Please bring this to your follow-up appointment. Sepsis Event Note (ED) - Evaluation Sepsis Screening Result: No Definite Risk - Focused Exam Vital Signs: Vital Signs Temp Pulse Resp BP Pulse Ox 08/20/19 10:38 97.8 F 79 17 161/103 H 97 - My Orders Last 24 Hours: My Active Orders 08/20/19 10:43 EKG Documentation Completion [RC] STAT Sodium Chloride 0.9% [Saline Flush] 10 ml FLUSH ASDIRECTED PRN Sodium Chloride 0.9% [Saline Flush] 2.5 ml FLUSH ASDIRECTED PRN Saline Lock Insert [OM.PC] Stat - Assessment/Plan Last 24 Hours: My Active Orders 08/20/19 10:43 EKG Documentation Completion [RC] STAT Sodium Chloride 0.9% [Saline Flush] 10 ml FLUSH ASDIRECTED PRN Sodium Chloride 0.9% [Saline Flush] 2.5 ml FLUSH ASDIRECTED PRN Saline Lock Insert [OM.PC] Stat
[2019-08-20] MEDS ORDERED: Sodium Chloride 0.9% 1,000 ML IV ONE (10:50)
[2019-08-20 11:18] LABS: BLOOD UREA NITROGEN,BUN 15 mg/dL (7.0-18.0); CARBON DIOXIDE,CO2 26.3 mmol/L (21.0-32.0); CHLORIDE,CL 102 mmol/L (98-107); GLUCOSE RANDOM 133 mg/dL (74-106); SODIUM,NA 140 mmol/L (136-148)
--- NOTE | 2019-08-20 12:28 | CR ---
Chest: Portable view of the chest was obtained. Comparison: Prior chest x-ray of 12/07/18. Heart size and mediastinum are within normal limits. Right-sided infusion port is seen. Lungs are clear with no acute parenchymal change. Lap-band is noted. Impression: 1. Nothing acute is seen on 2 view chest x-ray. Diagnostic code #2 This report was dictated in MDT
--- NOTE | 2019-08-20 12:35 | CT ---
Head CT Technique: Multiple axial sections through the brain were obtained. Intravenous contrast was not utilized. Comparison: No prior intracranial imaging is available. Findings: Ventricles along with basal cisterns and sulci over the convexities are within normal limits for the patient's age. No abnormal parenchymal densities are seen. No evidence of intracranial hemorrhage. No midline shift or mass-effect is seen. Bone window settings were reviewed. Visualized paranasal sinuses show nothing acute. Mastoid sinuses show nothing acute. No acute calvarial finding is seen. Impression: 1. Nothing acute is appreciated on noncontrast head CT study. Diagnostic code #1 This report was dictated in MDT
== END 2019-08-20 12:47 | disposition home or self-care (01) ==
LOC: MW.ED 10:35
DX: R41.0 Disorientation, unspecified (principal); J45.909 Unspecified asthma, uncomplicated; E66.9 Obesity, unspecified; Z68.42 Body mass index [BMI] 45.0-49.9, adult; Z91.048 Other nonmedicinal substance allergy status; Z88.1 Allergy status to other antibiotic agents; Z88.8 Allergy status to other drugs, medicaments and biological substances; Z79.899 Other long term (current) drug therapy
CPT/HCPCS: 36415; 70450; 71045; 80053; 80305; 81003; 83735; 84443; 85025; 93005; 96360; 96361; 99284; J7030; 99283

== ENCOUNTER 2019-12-03 17:12 | Emergency (ER) | payer MEDICAID ==
[2019-12-03] MEDS ORDERED: Bacitracin Oint 1 GM U/D Packet TOP ONE (17:44)
--- NOTE | 2019-12-03 18:12 | EDM.PDOC ---
ED HPI GENERAL MEDICAL PROBLEM - General Chief Complaint: Laceration Stated Complaint: LT MIDDLE FINGER LACERATION Time Seen by Provider: 12/03/19 17:43 - History of Present Illness INITIAL COMMENTS - FREE TEXT/NARRATIVE: History of present illness: Patient presents with a laceration to his left middle finger that occurred just prior to arrival he was carving wood with a rotary chainsaw whizzer hand when the saw kicked back and caught him in the left middle finger causing laceration laceration is 3 cm long and irregular there is no numbness or tingling no other injuries tetanus was within the last 4 years he has full range of motion. Review of systems: As per history of present illness and below otherwise all systems reviewed and negative. Past medical history: As per history of present illness and as reviewed below otherwise noncontributory. Surgical history: As per history of present illness and as reviewed below otherwise noncontributory. Social history: No reported history of drug or alcohol abuse. Family history: As per history of present illness and as reviewed below otherwise noncontributory. Physical exam: HEENT: Atraumatic, normocephalic, pupils reactive, negative for conjunctival pallor or scleral icterus, mucous membranes moist, throat clear, neck supple, nontender, trachea midline. Lungs: Clear to auscultation, breath sounds equal bilaterally, chest nontender. Heart: S1S2, regular, negative for clicks, rubs, or JVD. Abdomen: Soft, nondistended, nontender. Negative for masses or hepatosplenomegaly. Negative for costovertebral tenderness. Pelvis: Stable nontender. Genitourinary: Deferred. Rectal: Deferred. Extremities: Atraumatic, negative for cords or calf pain. Neurovascular unremarkable. There is a 3 cm jagged laceration to the lateral aspect of the left middle finger bleeding controlled no evidence of tendon injury does not appear to be contaminated there is good distal sensory and cap refill Neuro: Awake, alert, oriented. Cranial nerves II through XII unremarkable. Cer ebellum unremarkable. Motor and sensory unremarkable throughout. Exam nonfocal. Diagnostics: [] Therapeutics: [] Impression: Laceration [] Plan: Irrigate the wound and repair the laceration. [] Definitive disposition and diagnosis as appropriate pending reevaluation and review of above. left middle finger Pain Score (Numeric/FACES): 5 - Related Data Allergies Allergy/AdvReac Type Severity Reaction Status Date / Time cat dander Allergy Sneezing Verified 12/03/19 17:21 cephalexin [From Keflex] Allergy Anaphylactic Verified 12/03/19 17:21 Shock enoxaparin [From Lovenox] Allergy Disorientat Verified 12/03/19 17:21 ion grass pollen Allergy Sneezing Verified 12/03/19 17:21 Home Meds: Home Meds Acetaminophen [Pain Reliever] 2 tab PO ASDIRECTED PRN 05/04/18 [History] Cholecalciferol (Vitamin D3) [Vitamin D] 5,000 unit PO DAILY 05/04/18 [History] Multivitamin [Multi-Vitamin Daily] 1 each PO DAILY 05/04/18 [History] Albuterol [Ventolin HFA] 1 puff INH ASDIRECTED PRN 12/14/18 [History] Loratadine [Claritin] 10 mg PO ASDIRECTED PRN 12/14/18 [History] Omeprazole 20 mg PO ASDIRECTED PRN 12/14/18 [History] Vitamin E Mixed [Vitamin E] 5,000 units PO DAILY 12/14/18 [History] Past Medical History HEENT History: Reports: None Cardiovascular History: Reports: Other (See Below) Other Cardiovascular History: HTN during chemo Respiratory History: Reports: Asthma Gastrointestinal History: Reports: Other (See Below) Other Gastrointestinal History: occasional heartburn relieved with OTC omeprazole Genitourinary History: Reports: None Musculoskeletal History: Reports: Back Pain, Chronic Other Musculoskeletal History: "crushed vertebrae" Neurological History: Reports: Neuropathy, 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 Psychiatric History: Reports: None Endocrine/Metabolic History: Reports: Obesity/BMI 30+ Hematologic History: Reports: None Immunologic History: Reports: None Oncologic (Cancer) History: Reports: Other (See Below) 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, hematoma removal Dermatologic History: Reports: None - Infectious Disease History Infectious Disease History: Reports: Chicken Pox - Past Surgical History Head Surgeries/Procedures: Reports: None Cardiovascular Surgical History: Reports: None Respiratory Surgical History: Reports: None GI Surgical History: Reports: Bariatric Procedure Other GI Surgeries/Procedures: lap band procedure Male Surgical History: Reports: None Endocrine Surgical History: Reports: None Neurological Surgical History: Reports: None Musculoskeletal Surgical History: Reports: None Oncologic Surgical History: Reports: None, Other (See Below) Dermatological Surgical History: Reports: None Social & Family History - Family History Family Medical History: Noncontributory - Tobacco Use Smoking Status *Q: Never Smoker - Caffeine Use Caffeine Use: Reports: None - Recreational Drug Use Recreational Drug Use: No ED ROS GENERAL - Review of Systems Review Of Systems: See Below ED EXAM, SKIN/RASH Exam: See Below Course - Vital Signs Text/Narrative:: Procedure: Left middle finger was anesthetized with 8 mils of 1% lidocaine using a digital block on the volar aspect of the left middle finger. This achieved good analgesia the wound was then irrigated copiously with normal saline and was explored no foreign bodies were noted no tendon injury was noted it was debrided moderately using rat tooth and scissors. Wound was then closed using five 4-0 nylon simple interrupted sutures. Tolerated procedure well Patient will be discharged home he is to return to the ED immediately for redness swelling or pus he is to return in 10 days to have the sutures removed. Last Recorded V/S: Last Vital Signs Temp 36.2 C 12/03/19 17:18 Pulse 87 12/03/19 17:18 Resp 16 12/03/19 17:18 BP 139/90 12/03/19 17:18 Pulse Ox 94 L 12/03/19 17:18 - Orders/Labs/Meds Meds: Medications Discontinued Medications Generic Name Dose Route Start Last Admin Trade Name Gaviota PRN Reason Stop Dose Admin Bacitracin 1 dose 12/03/19 17:44 Bacitracin Oint 1 Gm TOP 12/03/19 17:45 ONETIME ONE Departure - Departure Time of Disposition: 18:10 Disposition: Home, Self-Care 01 Condition: Good Clinical Impression: Laceration - Discharge Information *PRESCRIPTION DRUG MONITORING PROGRAM REVIEWED*: Not Applicable *COPY OF PRESCRIPTION DRUG MONITORING REPORT IN PATIENT RINKU: Not Applicable Instructions: Laceration Care, Adult, [id number] Referrals: Charli Hoover MD [Primary Care Provider] - Additional Instructions: The following information is given to patients seen in the emergency department who are being discharged to home. This information is to outline your options for follow-up care. We provide all patients seen in our emergency department with a follow-up referral. The need for follow-up, as well as the timing and circumstances, are variable depending upon the specifics of your emergency department visit. If you don't have a primary care physician on staff, we will provide you with a referral. We always advise you to contact your personal physician following an emergency department visit to inform them of the circumstance of the visit and for follow-up with them and/or the need for any referrals to a consulting specialist. The emergency department will also refer you to a specialist when appropriate. This referral assures that you have the opportunity for follow-up care with a specialist. All of these measure are taken in an effort to provide you with opt imal care, which includes your follow-up. Under all circumstances we always encourage you to contact your private physician who remains a resource for coordinating your care. When calling for follow-up care, please make the office aware that this follow-up is from your recent emergency room visit. If for any reason you are refused follow-up, please contact the [facility] Emergency Department at and asked to speak to the emergency department charge nurse. Return to the ED in 10 days for suture removal. If you experience redness swelling pus or increased pain return to the ED immediately for reevaluation. Sepsis Event Note (ED) - Evaluation Sepsis Screening Result: No Definite Risk - Focused Exam Vital Signs: Vital Signs Temp Pulse Resp BP Pulse Ox 12/03/19 17:18 36.2 C 87 16 139/90 94 L
== END 2019-12-03 18:23 | disposition home or self-care (01) ==
LOC: MW.ED 17:12
DX: S61.213A Laceration without foreign body of left middle finger without damage to nail, initial encounter (principal); I10 Essential (primary) hypertension; J45.909 Unspecified asthma, uncomplicated; G62.9 Polyneuropathy, unspecified; E66.9 Obesity, unspecified; Z68.41 Body mass index [BMI] 40.0-44.9, adult; Z91.048 Other nonmedicinal substance allergy status; Z88.1 Allergy status to other antibiotic agents; Z79.899 Other long term (current) drug therapy; W29.3XXA Contact with powered garden and outdoor hand tools and machinery, initial encounter
CPT/HCPCS: 12002; 64450; 99282; 99282-25

== ENCOUNTER 2020-04-02 10:09 | Day surgery (SDC) | payer MEDICAID ==
[~2020-04-02 10:09] MED LIST changes: +Acetaminophen 1,000 MG in Premix Bag 1 BAG IV ONE; -Clindamycin Phosphate in D5W 600 MG in Premix Bag 1 BAG IV ONE; +Lidocaine 2% Jelly 30 ML Tube ONE; -Midazolam 1 MG/ML 2 ML SDV ONE; +Pregabalin 75 MG Cap PO SCH; -Propofol 200 MG/20 ML SDV ONE; -Sodium Chloride 0.9% 10 ML SDV IV PRN; -Sodium Chloride 0.9% 10 ML Syringe FLUSH PRN; -Sodium Chloride 0.9% 2.5 ML Syringe FLUSH PRN
[2020-04-02] MEDS ORDERED: Propofol 200 MG/20 ML SDV ONE ×2 (10:18→12:10)
[2020-04-02] MEDS ORDERED: fentaNYL 100 MCG/2 ML SDV ONE (10:19)
[2020-04-02] MEDS ORDERED: Midazolam 1 MG/ML 2 ML SDV ONE (10:19)
[2020-04-02] MEDS ORDERED: Ondansetron 4 MG/2 ML SDV ONE (10:20)
--- NOTE | 2020-04-02 10:34 | PCM.PREANE ---
Preanesthetic Assessment - Anesthesia/Transfusion/Family Hx Anesthesia History: Prior Anesthesia Without Reaction Family History of Anesthesia Reaction: No Transfusion History: No Prior Transfusion(s) Intubation History: Unknown - Review of Systems General: No Symptoms Pulmonary: No Symptoms Cardiovascular: No Symptoms Neurological: Paresthesia Other: Reports: None - Physical Assessment NPO Status Date: 04/01/20 Vital Signs: Last Vital Signs Temp 96.4 F L 04/02/20 10:16 Pulse 73 04/02/20 10:16 Resp 16 04/02/20 10:16 BP 144/91 H 04/02/20 10:16 Pulse Ox 95 04/02/20 10:16 Height: 5 ft 11 in Weight: 137.892 kg ASA Class: 2 Mental Status: Alert & Oriented x3 Airway Class: Mallampati = 1 Dentition: Reports: Normal Dentition ROM/Head Extension: Full Lungs: Clear to Auscultation, Normal Respiratory Effort Cardiovascular: Regular Rate, Regular Rhythm - Lab Values: Laboratory Last Values SARS-CoV-2 RNA ([facility]) NEGATIVE (NEGATIVE) 04/02/20 08:58 - Allergies Allergies/Adverse Reactions: Allergies Allergy/AdvReac Type Severity Reaction Status Date / Time cat dander Allergy Sneezing Verified 04/01/20 13:46 cephalexin [From Keflex] Allergy Anaphylactic Verified 04/01/20 13:46 Shock enoxaparin [From Lovenox] Allergy Disorientat Verified 04/01/20 13:47 ion grass pollen Allergy Sneezing Verified 04/01/20 13:46 - Anesthesia Plan Pre-Op Medication Ordered: None - Acknowledgements Anesthesia Type Planned: Spinal Pt an Appropriate Candidate for the Planned Anesthesia: Yes Alternatives and Risks of Anesthesia Discussed w Pt/Guardian: Yes Pt/Guardian Understands and Agrees with Anesthesia Plan: Yes Additional Comments: PMH: intermittant neuropathy following chemotherapy, asthma, htn, gerd, MO PLAN: saddle block with sedation PreAnesthesia Questionnaire HEENT History: Reports: None Cardiovascular History: Reports: None Respiratory History: Reports: Asthma, Sleep Apnea Other Respiratory History: hx of asthma- does not use inhaler, just diagnosed with "mild" sleep apnea- has not received CPAP yet Gastrointestinal History: Reports: Other (See Below) Other Gastrointestinal History: occasional heartburn relieved with OTC omeprazole, takes every few days Genitourinary History: Reports: None Musculoskeletal History: Reports: Back Pain, Chronic, Fracture, Gout Other Musculoskeletal History: "crushed vertebrae", hx of fx ankle Neurological History: Reports: Neuropathy, 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 Psychiatric History: Reports: None Endocrine/Metabolic History: Reports: Obesity/BMI 30+ Hematologic History: Reports: None Immunologic History: Reports: None Oncologic (Cancer) History: Reports: Other (See Below) 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, hematoma removal Dermatologic History: Reports: None - Infectious Disease History Infectious Disease History: Reports: Chicken Pox - Past Surgical History Head Surgeries/Procedures: Reports: None HEENT Surgical History: Reports: None Cardiovascular Surgical History: Reports: Vascular Surgery Other Cardiovascular Surgeries/Procedures: port-a-cath placement for Chemotherapy- removed Respiratory Surgical History: Reports: None GI Surgical History: Reports: Bariatric Procedure Other GI Surgeries/Procedures: lap band procedure Male Surgical History: Reports: None Endocrine Surgical History: Reports: None Neurological Surgical History: Reports: None Musculoskeletal Surgical History: Reports: None Oncologic Surgical History: Reports: Other (See Below) Other Oncologic Surgeries/Procedures: excision of right inner thigh mass Dermatological Surgical History: Reports: None - SUBSTANCE USE Tobacco Use Status *Q: Never Tobacco User Recreational Drug Use History: No - HOME MEDS Home Medications: Home Meds Multivitamin [Multi-Vitamin Daily] 1 each PO DAILY 05/04/18 [History] Omeprazole 20 mg PO ASDIRECTED PRN 12/14/18 [History] - CURRENT (IN HOUSE) MEDS Current Meds: Current Medications Lactated Ringer's (Ringers, Lactated) 1,000 mls @ 125 mls/hr IV ASDIRECTED NANCIE Pregabalin (Lyrica) 150 mg PO DAILY NANCIE Discontinued Medications Fentanyl (Sublimaze) Confirm Administered Dose 100 mcg .ROUTE .STK-MED ONE Stop: 04/02/20 10:20 Acetaminophen 1,000 mg/ Premix 100 mls @ 400 mls/hr IV NOW ONE Stop: 04/01/20 14:54 Lidocaine HCl (Xylocaine 2% Jelly) Confirm Administered Dose 60 ml .ROUTE .STK- MED ONE Stop: 04/02/20 09:10 Midazolam HCl (Versed 1 Mg/Ml) Confirm Administered Dose 2 mg .ROUTE .STK-MED ONE Stop: 04/02/20 10:20 Ondansetron HCl (Zofran) Confirm Administered Dose 4 mg .ROUTE .STK-MED ONE Stop: 04/02/20 10:21 Propofol (Diprivan 20 Ml) Confirm Administered Dose 200 mg .ROUTE .STK-MED ONE Stop: 04/02/20 10:19
--- NOTE | 2020-04-02 12:53 | PCM.OPNOTE ---
- General Post-Op/Procedure Note Date of Surgery/Procedure: 04/02/20 Operative Procedure(s): excision of thrombosed external hemorrhoid Findings: Thrombosed external hemorrhoid left side dictation number [id number] Pre Op Diagnosis: Thrombosed external hemorrhoid Post-Op Diagnosis: thrombosed external hemorrhoid Anesthesia Technique: Spinal Primary Surgeon: Zhou Yarbrough Pathology: hemorrhoid EBL in mLs: 5 Complications: None Condition: Good
--- NOTE | 2020-04-02 13:00 | PCM.POSTAN ---
POST ANESTHESIA ASSESSMENT - MENTAL STATUS Mental Status: Alert, Oriented - VITAL SIGNS Vital Signs: Last Vital Signs Temp 96.4 F L 04/02/20 10:16 Pulse 68 04/02/20 12:54 Resp 14 04/02/20 12:54 BP 114/61 04/02/20 12:54 Pulse Ox 96 04/02/20 12:54 - RESPIRATORY Respiratory Status: Respiratory Rate WNL, Airway Patent, O2 Saturation Stable - CARDIOVASCULAR CV Status: Pulse Rate WNL, Blood Pressure Stable - GASTROINTESTINAL GI Status: No Symptoms - POST OP HYDRATION Hydration Status: Adequate & Stable
[2020-04-02] MEDS ORDERED: Bupivacaine 25%/EPINEPHrine/PF 30 ML ONE (14:46)
--- NOTE | 2020-04-02 14:58 | PCM48HPAN ---
Post Anesthesia Note - EVALUATION WITHIN 48HRS OF ANESTHETIC Vital Signs in Normal Range: Yes Patient Participated in Evaluation: Yes Respiratory Function Stable: Yes Airway Patent: Yes Cardiovascular Function Stable: Yes Hydration Status Stable: Yes Pain Control Satisfactory: Yes Nausea and Vomiting Control Satisfactory: Yes Mental Status Recovered: Yes Vital Signs: Last Vital Signs Temp 35.9 C L 04/02/20 12:59 Pulse 70 04/02/20 13:29 Resp 16 04/02/20 13:59 BP 116/68 04/02/20 13:59 Pulse Ox 97 04/02/20 13:59
--- NOTE | 2020-04-02 17:46 | OR ---
SURGEON: LUNA MESA MD DATE OF PROCEDURE: 04/02/2020 PREOPERATIVE DIAGNOSIS: Thrombosed hemorrhoid. POSTOPERATIVE DIAGNOSIS: Thrombosed hemorrhoid. PROCEDURE PERFORMED: Excision of thrombosed external hemorrhoid. PRIMARY SURGEON: Luna Mesa MD ANESTHESIA: Spinal. BLOOD LOSS: 5. COMPLICATIONS: None. PATHOLOGY: Hemorrhoid. REASON FOR PROCEDURE: The patient is a pleasant 35-year-old gentleman who has had hemorrhoids off and on for the last year or so. He said about a day or two ago when it became suddenly bigger and fairly painful. On exam, he did have what looked to be an external hemorrhoid that was thrombosed and it started having an ulceration. I did go over with the patient again risks, goals, and alternatives of procedure. Risks include, but not limited to, bleeding, infection, injury to underlying structures such as sphincter muscle, recurrence, incontinence of stool and flatus, and that he may develop more hemorrhoids. The patient understands. I also went over that we would take a look and see if there is any internal component and then might do a full hemorrhoidectomy. The patient understands and wishes to proceed. OPERATION NARRATIVE: The patient was brought back to the OR. He was prepped and draped in the usual sterile fashion. He did have a spinal anesthesia and placed in the prone ruchi- knife position. SCDs were placed. Time-out was performed. Exam under anesthesia was done, again had what appeared to be a left external hemorrhoid that was thrombosed. Starting to get some darker necrotic tissue. Clot was starting to work its way out actually, but not really too much of an internal component to it. The external hemorrhoid at the area where it had blackened, it was opened and the clot removed. Now, the hemorrhoidal tissue was elevated up and removed with the Harmonic scalpel making sure not to injure the underlying structures. The hemorrhoid was removed. There was good hemostasis. The rest of the local was injected. At the end of the case, sponge and needle counts were correct, and the patient was returned to recovery room in stable condition. PATTY / SHAN /[id number]
== END 2020-04-02 15:30 | disposition home or self-care (01) ==
LOC: MW.SDS 10:09
PROVIDERS: ATTEND Surgery
DX: K64.5 Perianal venous thrombosis (principal); J45.909 Unspecified asthma, uncomplicated; E66.9 Obesity, unspecified; G62.9 Polyneuropathy, unspecified; Z01.812 Encounter for preprocedural laboratory examination; Z20.822 Contact with and (suspected) exposure to COVID-19; Z88.8 Allergy status to other drugs, medicaments and biological substances; Z79.899 Other long term (current) drug therapy; Z98.890 Other specified postprocedural states; Z87.891 Personal history of nicotine dependence; Z68.41 Body mass index [BMI] 40.0-44.9, adult
CPT/HCPCS: 46320; 87635; 88304; A9270; J0131; J2250; J2405; J2704; J3010; J7120; 00902; U0002

== ENCOUNTER 2020-05-17 17:39 | Observation (INO) | payer MEDICAID ==
--- NOTE | 2020-05-17 17:51 | EDM.PDOC ---
<Vern Aj - Last Filed: 05/17/20 17:56> ED HPI GENERAL MEDICAL PROBLEM - General Chief Complaint: Chest Pain Stated Complaint: LT ARM PAIN, CHEST PAIN Time Seen by Provider: 05/17/20 17:49 Source of Information: Reports: Patient History Limitations: Reports: No Limitations - History of Present Illness INITIAL COMMENTS - FREE TEXT/NARRATIVE: Patient is a 35-year-old male who presents today for left-sided chest pain that radiates to his left arm. Patient says the pain started about an hour ago he took 4 baby aspirin's without much relief. Patient states the pain is made worse with a deep breath. Patient has any cough and no shortness of breath. Patient denies any nausea vomiting fevers or chills. Patient has been having some chest pain in the past and recently saw cardiology that had a echo EKG they are both essentially negative. chest Pain Score (Numeric/FACES): 7 - Related Data Allergies Allergy/AdvReac Type Severity Reaction Status Date / Time cat dander Allergy Sneezing Verified 05/17/20 17:47 cephalexin [From Keflex] Allergy Anaphylactic Verified 05/17/20 17:47 Shock enoxaparin [From Lovenox] Allergy Disorientat Verified 05/17/20 17:47 ion grass pollen Allergy Sneezing Verified 05/17/20 17:47 Home Meds: Home Meds Multivitamin [Multi-Vitamin Daily] 1 each PO DAILY 05/04/18 [History] Omeprazole 20 mg PO ASDIRECTED PRN 12/14/18 [History] Acetaminophen/HYDROcodone [[place] 325-5 MG] 1 tab PO Q6H PRN #5 tablet 04/02/20 [Rx] Past Medical History HEENT History: Reports: None Cardiovascular History: Reports: None Respiratory History: Reports: Asthma, Sleep Apnea Other Respiratory History: hx of asthma- does not use inhaler, just diagnosed with "mild" sleep apnea- has not received CPAP yet Gastrointestinal History: Reports: Other (See Below) Other Gastrointestinal History: occasional heartburn relieved with OTC omeprazo le, takes every few days Genitourinary History: Reports: None Musculoskeletal History: Reports: Back Pain, Chronic, Fracture, Gout Other Musculoskeletal History: "crushed vertebrae", hx of fx ankle Neurological History: Reports: Neuropathy, 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 Psychiatric History: Reports: None Endocrine/Metabolic History: Reports: Obesity/BMI 30+ Hematologic History: Reports: None Immunologic History: Reports: None Oncologic (Cancer) History: Reports: Other (See Below) 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, hematoma removal Dermatologic History: Reports: None - Infectious Disease History Infectious Disease History: Reports: Chicken Pox - Past Surgical History Cardiovascular Surgical History: Reports: Vascular Surgery Other Cardiovascular Surgeries/Procedures: port-a-cath placement for Chemotherapy- removed Oncologic Surgical History: Reports: Other (See Below) Other Oncologic Surgeries/Procedures: excision of right inner thigh mass Social & Family History - Family History Family Medical History: No Pertinent Family History - Caffeine Use Caffeine Use: Reports: None ED ROS GENERAL - Review of Systems Review Of Systems: See Below Constitutional: Reports: No Symptoms HEENT: Reports: No Symptoms Respiratory: Reports: No Symptoms Cardiovascular: Reports: Chest Pain Endocrine: Reports: No Symptoms GI/Abdominal: Reports: No Symptoms : Reports: No Symptoms Musculoskeletal: Reports: No Symptoms Skin: Reports: No Symptoms Neurological: Reports: No Symptoms Psychiatric: Reports: No Symptoms Hematologic/Lymphatic: Reports: No Symptoms Immunologic: Reports: No Symptoms ED EXAM, GENERAL - Physical Exam Exam: See Below Exam Limited By: No Limitations General Appearance: Alert, WD/WN Eye Exam: Bilateral Eye: EOMI, PERRL Respiratory/Chest: No Respiratory Distress, Lungs Clear, Normal Breath Sounds Cardiovascular: Normal Peripheral Pulses, Regular Rate, Rhythm GI/Abdominal: Normal Bowel Sounds, Soft, Non-Tender Neurological: Alert, Oriented, CN II-XII Intact, Normal Cognition #1 Interpretation EKG Date: 05/17/20 Time: 17:50 Rhythm: NSR Rate (Beats/Min): 67 ST-T: Normal Departure - Departure Disposition: Refer to Observation Clinical Impression: Chest pain Referrals: Charli Hoover MD [Primary Care Provider] - Forms: ED Department Discharge - Assessment/Plan Plan: Patient is a 35-year-old male who presents today for chest pain left-sided. Heart score is a 1 just for risk factors of hypertension he does not take any medication for elevated blood pressure states blood pressures recent became elevated. Will obtain this EKG labs checked his rate and reassess. <Ryland Leo - Last Filed: 05/17/20 21:41> Course - Vital Signs Text/Narrative:: 30 p.m. the patient had chest pain. He has been having shoulder pain for more than a week. It is sharp pain that is not brought on by exertion but today it radiated down into his chest and there was a heavy weight on his chest. 2 nitro helped a little bit. He still has the pain in his shoulder. The patient has an appointment with a bone glue maker because his doctor wants him to follow-up because he has had so much chemotherapy that apparently according to his doctor's the type of chemotherapy that can damage his heart. The patient is reasonably comfortable now. He does continue to have pain in his shoulder that radiates a little toward the chest Comfortable in the emergency department. His pain is gone in the chest and better in the shoulder. Discussed with Dr. Rickey Sheth a.m. placed on telemetry monitoring because he is on a chemotherapy regimen that his doctor says is toxic to his heart. He also had a father suddenly while exerting himself pushing a car and may in fact have been an [place] but he is not sure Last Recorded V/S: Last Vital Signs Temp 36.6 C 05/17/20 20:20 Pulse 63 05/17/20 20:20 Resp 18 05/17/20 20:20 BP 133/79 05/17/20 20:20 Pulse Ox 97 05/17/20 20:20 - Orders/Labs/Meds Orders: Active Orders 24 hr Category Date Time Status Admission Status [Patient Status] [ADT] Stat ADT 05/17/20 21:39 Ordered EKG 12 Lead [EKG Documentation Completion] [RC] STAT Care 05/17/20 20:49 Active Nitroglycerin [Nitrostat] Med 05/17/20 18:07 Active 0.4 mg SL Q5M PRN Medication Orders Nitroglycerin (Nitroglycerin 0.4 Mg Tab.Sl) 0.4 mg SL Q5M PRN PRN Reason: Chest Pain Last Admin: 05/17/20 18:22 Dose: 0.4 mg Documented by: Admin: 05/17/20 18:11 Dose: 0.4 mg Documented by: LUIS Labs: Laboratory Tests 05/17/20 05/17/20 05/17/20 Range/Units 18:02 18:02 19:25 WBC 9.94 (4.0-11.0) K/uL RBC 4.94 (4.50-5.90) M/uL Hgb 15.8 (13.0-17.0) g/dL Hct 45.7 (38.0-50.0) % MCV 92.5 (80.0-98.0) fL MCH 32.0 (27.0-32.0) pg MCHC 34.6 (31.0-37.0) g/dL RDW Std Deviation 45.8 (28.0-62.0) fl RDW Coeff of [place] 14 (11.0-15.0) % Plt Count 194 (150-400) K/uL MPV 9.20 (7.40-12.00) fL Neut % (Auto) 56.8 (48.0-80.0) % Lymph % (Auto) 33.3 (16.0-40.0) % [place] % (Auto) 8.6 (0.0-15.0) % Eos % (Auto) 0.8 (0.0-7.0) % Baso % (Auto) 0.5 (0.0-1.5) % Neut # (Auto) 5.7 (1.4-5.7) K/uL Lymph # (Auto) 3.3 H (0.6-2.4) K/uL [place] # (Auto) 0.9 H (0.0-0.8) K/uL Eos # (Auto) 0.1 (0.0-0.7) K/uL Baso # (Auto) 0.1 (0.0-0.1) K/uL Nucleated RBC % 0.0 /100WBC Nucleated RBCs # 0 K/uL Sodium 138 (136-148) mmol/L Potassium 4.3 (3.5-5.1) mmol/L Chloride 102 (98-107) mmol/L Carbon Dioxide 27.5 (21.0-32.0) mmol/L BUN 15 (7.0-18.0) mg/dL Creatinine 1.0 (0.8-1.3) mg/dL Est Cr Clr Drug Dosing 108.77 mL/min Estimated GFR (MDRD) > 60.0 ml/min Glucose 88 (74-106) mg/dL Calcium 8.6 (8.5-10.1) mg/dL Phosphorus 4.1 (2.6-4.7) mg/dL Magnesium 2.3 (1.8-2.4) mg/dL Total Bilirubin 0.4 (0.2-1.0) mg/dL AST 21 (15-37) IU/L ALT 26 (14-63) IU/L Alkaline Phosphatase 105 (46-116) U/L Creatine Kinase 151 (26-308) U/L Troponin I < 0.050 (0.000-0.056) ng/mL Total Protein 7.8 (6.4-8.2) g/dL Albumin 3.6 (3.4-5.0) g/dL Globulin 4.2 H (2.6-4.0) g/dL Albumin/Globulin Ratio 0.9 (0.9-1.6) Lipase 187 (73-393) U/L Influenza Type A RNA NEGATIVE (NEGATIVE) Influenza Type B RNA NEGATIVE (NEGATIVE) SARS-CoV-2 RNA ([place]) NEGATIVE (NEGATIVE) 05/17/20 Range/Units 20:52 WBC (4.0-11.0) K/uL RBC (4.50-5.90) M/uL Hgb (13.0-17.0) g/dL Hct (38.0-50.0) % MCV (80.0-98.0) fL MCH (27.0-32.0) pg MCHC (31.0-37.0) g/dL RDW Std Deviation (28.0-62.0) fl RDW Coeff of Enma (11.0-15.0) % Plt Count (150-400) K/uL MPV (7.40-12.00) fL Neut % (Auto) (48.0-80.0) % Lymph % (Auto) (16.0-40.0) % [place] % (Auto) (0.0-15.0) % Eos % (Auto) (0.0-7.0) % Baso % (Auto) (0.0-1.5) % Neut # (Auto) (1.4-5.7) K/uL Lymph # (Auto) (0.6-2.4) K/uL [place] # (Auto) (0.0-0.8) K/uL Eos # (Auto) (0.0-0.7) K/uL Baso # (Auto) (0.0-0.1) K/uL Nucleated RBC % /100WBC Nucleated RBCs # K/uL Sodium (136-148) mmol/L Potassium (3.5-5.1) mmol/L Chloride (98-107) mmol/L Carbon Dioxide (21.0-32.0) mmol/L BUN (7.0-18.0) mg/dL Creatinine (0.8-1.3) mg/dL Est Cr Clr Drug Dosing mL/min Estimated GFR (MDRD) ml/min Glucose (74-106) mg/dL Calcium (8.5-10.1) mg/dL Phosphorus (2.6-4.7) mg/dL Magnesium (1.8-2.4) mg/dL Total Bilirubin (0.2-1.0) mg/dL AST (15-37) IU/L ALT (14-63) IU/L Alkaline Phosphatase (46-116) U/L Creatine Kinase (26-308) U/L Troponin I < 0.050 (0.000-0.056) ng/mL Total Protein (6.4-8.2) g/dL Albumin (3.4-5.0) g/dL Globulin (2.6-4.0) g/dL Albumin/Globulin Ratio (0.9-1.6) Lipase (73-393) U/L Influenza Type A RNA (NEGATIVE) Influenza Type B RNA (NEGATIVE) SARS-CoV-2 RNA ([place]) (NEGATIVE) Meds: Medications Generic Name Dose Route Start Last Admin Trade Name Freq PRN Reason Stop Dose Admin Nitroglycerin 0.4 mg 05/17/20 18:07 05/17/20 18:22 Nitroglycerin 0.4 Mg Tab.Sl SL 0.4 mg Q5M PRN Administration Chest Pain Discontinued Medications Generic Name Dose Route Start Last Admin Trade Name Freq PRN Reason Stop Dose Admin Ketorolac Tromethamine 15 mg 05/17/20 20:04 05/17/20 20:17 Ketorolac 30 Mg/Ml Sdv IVPUSH 05/17/20 20:05 15 mg ONETIME ONE Administration Morphine Sulfate 4 mg 05/17/20 18:53 05/17/20 19:00 Morphine 4 Mg/Ml Syringe IVPUSH 05/17/20 18:54 4 mg ONETIME ONE Administration Departure - Departure Time of Disposition: 21:41 Condition: Good Sepsis Event Note (ED) - Focused Exam Vital Signs: Vital Signs Temp Pulse Resp BP BP Pulse Ox 05/17/20 20:20 36.6 C 63 18 133/79 97 05/17/20 18:22 147/96 H 05/17/20 18:11 178/107 H 05/17/20 17:48 36.3 C 73 18 152/93 H 95 - My Orders Last 24 Hours: My Active Orders 05/17/20 20:49 EKG 12 Lead [EKG Documentation Completion] [RC] STAT 05/17/20 21:39 Admission Status [Patient Status] [ADT] Stat - Assessment/Plan Last 24 Hours: My Active Orders 05/17/20 20:49 EKG 12 Lead [EKG Documentation Completion] [RC] STAT 05/17/20 21:39 Admission Status [Patient Status] [ADT] Stat
[2020-05-17] MEDS: Nitroglycerin 0.4 MG Tab.SL SL PRN ×2 (18:11→18:22)
[2020-05-17 18:43] LABS: BLOOD UREA NITROGEN,BUN 15 mg/dL (7.0-18.0); CARBON DIOXIDE,CO2 27.5 mmol/L (21.0-32.0); CHLORIDE,CL 102 mmol/L (98-107); GLUCOSE RANDOM 88 mg/dL (74-106); LIPASE 187 U/L (73-393); POTASSIUM,K 4.3 mmol/L (3.5-5.1); SODIUM,NA 138 mmol/L (136-148)
[2020-05-17] MEDS ORDERED: Morphine 4 MG/ML Syringe IVPUSH ONE (18:53)
--- NOTE | 2020-05-17 18:56 | CR ---
Indication: Chest pain Technique: Chest 2 views Comparison: Chest x-ray 09/17/2019 Findings/Impression: Cardiovascular and mediastinum: Heart size and vasculature are normal in caliber and appearance. Mediastinum is within normal limits. Lungs and pleural spaces: Lungs are clear. No sign of infiltrate or mass. No sign of pleural effusion. No pneumothorax. Bones and soft tissues: No significant findings. Dictated by Bakari Watts MD @ May 17 2020 6:55PM Signed by Dr. Bakari Watts @ May 17 2020 6:56PM
[2020-05-17] MEDS ORDERED: Ketorolac 30 MG/ML SDV IVPUSH ONE (20:04)
[2020-05-17 20:11] LABS: CORONAVIRUS COVID-19 NAA NEGATIVE (NEGATIVE); INFLUENZA A NAA NEGATIVE (NEGATIVE); INFLUENZA B NAA NEGATIVE (NEGATIVE)
[2020-05-18] MEDS ORDERED: Acetaminophen 325 MG Tab PO PRN (00:20)
--- NOTE | 2020-05-18 07:43 | PCM.HP.2 ---
H&P History of Present Illness - General Date of Service: 05/18/20 Admit Problem/Dx: Admission Diagnosis/Problem Admission Diagnosis/Problem Chest pain - History of Present Illness Initial Comments - Free Text/Narative: 35 yo male with pmh of Peres sarcoma, KRISHNA who presented to the ED with complaint of left shoulder pain. Patient reports that the pain radiated to his chest which was unusually which is why he came to the ED. He denies any shortness of breath, diaphoresis, or lightheadedness. He reports he has recently had an echocardiogram due to his history of chemotherapy and is supposed to follow up with Cardiology at the end of this month. Initial EKG and serial cardiac enzymes were negative. chest Pain Score (Numeric/FACES): 7 - Related Data Allergies/Adverse Reactions: Allergies Allergy/AdvReac Type Severity Reaction Status Date / Time cat dander Allergy Sneezing Verified 05/17/20 23:32 cephalexin [From Keflex] Allergy Anaphylactic Verified 05/17/20 23:32 Shock enoxaparin [From Lovenox] Allergy Disorientat Verified 05/17/20 23:32 ion grass pollen Allergy Sneezing Verified 05/17/20 23:32 Home Medications: Home Meds RX: Multivitamin [Multi-Vitamin Daily] 1 each PO DAILY 05/04/18 [History] RX: Omeprazole 40 mg PO DAILY 05/17/20 [History] Past Medical History HEENT History: Reports: None Cardiovascular History: Reports: None Respiratory History: Reports: Asthma, Sleep Apnea Other Respiratory History: hx of asthma- does not use inhaler, just diagnosed with "mild" sleep apnea- has not received CPAP yet Gastrointestinal History: Reports: GERD, Other (See Below) Other Gastrointestinal History: Heart burn. 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 Psychiatric History: Reports: Anxiety, Other (See Below) Other Psychiatric History: sees a therapist for the anxiety Endocrine/Metabolic History: Reports: Obesity/BMI 30+ Hematologic History: Reports: None Immunologic History: Reports: None Oncologic (Cancer) History: Reports: Other (See Below) 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, hematoma removal Dermatologic History: Reports: None - Infectious Disease History Infectious Disease History: Reports: Chicken Pox - Past Surgical History Head Surgeries/Procedures: Reports: None HEENT Surgical History: Reports: None Cardiovascular Surgical History: Reports: Vascular Surgery Other Cardiovascular Surgeries/Procedures: port-a-cath placement for Chemotherapy- removed Respiratory Surgical History: Reports: None GI Surgical History: Reports: Bariatric Procedure Other GI Surgeries/Procedures: lap band procedure Male Surgical History: Reports: None Endocrine Surgical History: Reports: None Neurological Surgical History: Reports: None Musculoskeletal Surgical History: Reports: None Oncologic Surgical History: Reports: Other (See Below) Other Oncologic Surgeries/Procedures: excision of right inner thigh mass Dermatological Surgical History: Reports: None Social & Family History - Family History Family Medical History: No Pertinent Family History - Tobacco Use Tobacco Use Status *Q: Never Tobacco User - Caffeine Use Caffeine Use: Reports: Coffee Other Caffeine Use: 3 cups/day - Recreational Drug Use Recreational Drug Use: No H&P Review of Systems - Review of Systems: Review Of Systems: Comprehensive ROS is negative, except as noted in HPI. Exam - Exam Exam: See Below - Vital Signs Vital Signs: Last Vital Signs Temp 36.1 C 05/18/20 03:05 Pulse 60 05/18/20 03:05 Resp 18 05/18/20 03:05 BP 119/63 05/18/20 03:05 Pulse Ox 92 L 05/18/20 03:05 Weight: 310 kg - Exam General: Alert, Oriented HEENT: Mucosa Moist & [place] Neck: Supple Lungs: Clear to Auscultation, Normal Respiratory Effort Cardiovascular: Regular Rate, Regular Rhythm GI/Abdominal Exam: Normal Bowel Sounds, Soft, Non-Tender Extremities: Non-Tender, No Pedal Edema Skin: Warm, Dry, Intact Neurological: Cranial Nerves Intact, Focal Deficit - Patient Data Lab Results Last 24 hrs: Laboratory Results - last 24 hr 05/17/20 05/17/20 05/17/20 Range/Units 18:02 18:02 19:25 WBC 9.94 (4.0-11.0) K/uL RBC 4.94 (4.50-5.90) M/uL Hgb 15.8 (13.0-17.0) g/dL Hct 45.7 (38.0-50.0) % MCV 92.5 (80.0-98.0) fL MCH 32.0 (27.0-32.0) pg MCHC 34.6 (31.0-37.0) g/dL RDW Std Deviation 45.8 (28.0-62.0) fl RDW Coeff of [place] 14 (11.0-15.0) % Plt Count 194 (150-400) K/uL MPV 9.20 (7.40-12.00) fL Neut % (Auto) 56.8 (48.0-80.0) % Lymph % (Auto) 33.3 (16.0-40.0) % [place] % (Auto) 8.6 (0.0-15.0) % Eos % (Auto) 0.8 (0.0-7.0) % Baso % (Auto) 0.5 (0.0-1.5) % Neut # (Auto) 5.7 (1.4-5.7) K/uL Lymph # (Auto) 3.3 H (0.6-2.4) K/uL [place] # (Auto) 0.9 H (0.0-0.8) K/uL Eos # (Auto) 0.1 (0.0-0.7) K/uL Baso # (Auto) 0.1 (0.0-0.1) K/uL Nucleated RBC % 0.0 /100WBC Nucleated RBCs # 0 K/uL Sodium 138 (136-148) mmol/L Potassium 4.3 (3.5-5.1) mmol/L Chloride 102 (98-107) mmol/L Carbon Dioxide 27.5 (21.0-32.0) mmol/L BUN 15 (7.0-18.0) mg/dL Creatinine 1.0 (0.8-1.3) mg/dL Est Cr Clr Drug Dosing 108.77 mL/min Estimated GFR (MDRD) > 60.0 ml/min Glucose 88 (74-106) mg/dL Calcium 8.6 (8.5-10.1) mg/dL Phosphorus 4.1 (2.6-4.7) mg/dL Magnesium 2.3 (1.8-2.4) mg/dL Total Bilirubin 0.4 (0.2-1.0) mg/dL AST 21 (15-37) IU/L ALT 26 (14-63) IU/L Alkaline Phosphatase 105 (46-116) U/L Creatine Kinase 151 (26-308) U/L Troponin I < 0.050 (0.000-0.056) ng/mL Total Protein 7.8 (6.4-8.2) g/dL Albumin 3.6 (3.4-5.0) g/dL Globulin 4.2 H (2.6-4.0) g/dL Albumin/Globulin Ratio 0.9 (0.9-1.6) Lipase 187 (73-393) U/L Influenza Type A RNA NEGATIVE (NEGATIVE) Influenza Type B RNA NEGATIVE (NEGATIVE) SARS-CoV-2 RNA ([place]) NEGATIVE (NEGATIVE) 05/17/20 05/18/20 Range/Units 20:52 03:00 WBC (4.0-11.0) K/uL RBC (4.50-5.90) M/uL Hgb (13.0-17.0) g/dL Hct (38.0-50.0) % MCV (80.0-98.0) fL MCH (27.0-32.0) pg MCHC (31.0-37.0) g/dL RDW Std Deviation (28.0-62.0) fl RDW Coeff of [place] (11.0-15.0) % Plt Count (150-400) K/uL MPV (7.40-12.00) fL Neut % (Auto) (48.0-80.0) % Lymph % (Auto) (16.0-40.0) % [place] % (Auto) (0.0-15.0) % Eos % (Auto) (0.0-7.0) % Baso % (Auto) (0.0-1.5) % Neut # (Auto) (1.4-5.7) K/uL Lymph # (Auto) (0.6-2.4) K/uL [place] # (Auto) (0.0-0.8) K/uL Eos # (Auto) (0.0-0.7) K/uL Baso # (Auto) (0.0-0.1) K/uL Nucleated RBC % /100WBC Nucleated RBCs # K/uL Sodium (136-148) mmol/L Potassium (3.5-5.1) mmol/L Chloride (98-107) mmol/L Carbon Dioxide (21.0-32.0) mmol/L BUN (7.0-18.0) mg/dL Creatinine (0.8-1.3) mg/dL Est Cr Clr Drug Dosing mL/min Estimated GFR (MDRD) ml/min Glucose (74-106) mg/dL Calcium (8.5-10.1) mg/dL Phosphorus (2.6-4.7) mg/dL Magnesium (1.8-2.4) mg/dL Total Bilirubin (0.2-1.0) mg/dL AST (15-37) IU/L ALT (14-63) IU/L Alkaline Phosphatase (46-116) U/L Creatine Kinase (26-308) U/L Troponin I < 0.050 < 0.050 (0.000-0.056) ng/mL Total Protein (6.4-8.2) g/dL Albumin (3.4-5.0) g/dL Globulin (2.6-4.0) g/dL Albumin/Globulin Ratio (0.9-1.6) Lipase (73-393) U/L Influenza Type A RNA (NEGATIVE) Influenza Type B RNA (NEGATIVE) SARS-CoV-2 RNA ([place]) (NEGATIVE) Result Diagrams: 05/17/20 18:02 05/17/20 18:02 Sepsis Event Note - Evaluation Sepsis Screening Result: No Definite Risk - Focused Exam Vital Signs: Vital Signs Temp Pulse Resp BP Pulse Ox 05/18/20 03:05 36.1 C 60 18 119/63 92 L 05/17/20 22:55 36.4 C 65 18 122/77 95 05/17/20 20:20 36.6 C 63 18 133/79 97 Problem List Initiated/Reviewed/Updated: Yes Orders Last 24hrs: Active Orders 24 hr Category Date Time Status Admission Status [Patient Status] [ADT] Stat ADT 05/17/20 21:39 Active Telemetry Monitoring [Cardiac Monitoring] [RC] Q8H Care 05/18/20 00:35 Active Regular Diet [DIET] Diet 05/18/20 Breakfast Active TROPONIN I [CHEM] Q6H Lab 05/18/20 09:00 Ordered Acetaminophen [TylenoL] Med 05/18/20 00:20 Active 650 mg PO Q4H PRN Nitroglycerin [Nitrostat] Med 05/17/20 18:07 Active 0.4 mg SL Q5M PRN Medication Orders Acetaminophen (Acetaminophen 325 Mg Tab) 650 mg PO Q4H PRN PRN Reason: Pain Nitroglycerin (Nitroglycerin 0.4 Mg Tab.Sl) 0.4 mg SL Q5M PRN PRN Reason: Chest Pain Last Admin: 05/17/20 18:22 Dose: 0.4 mg Documented by: Admin: 05/17/20 18:11 Dose: 0.4 mg Documented by: LUIS Assessment/Plan Comment:: 35 yo male admitted for chest pain. He has ruled out for ACS with serial cardi ac enzymes and EKG. He had no events on telemetry and chest pain has resolved. Patient was discharged home to follow up with his PCP.
== END 2020-05-18 11:50 | disposition home or self-care (01) ==
LOC: MW.ED 17:39 → MW.MS 21:39
PROVIDERS: ADMIT Internal Medicine; ATTEND Internal Medicine
DX: R07.89 Other chest pain (principal); M25.512 Pain in left shoulder; G47.33 Obstructive sleep apnea (adult) (pediatric); J45.909 Unspecified asthma, uncomplicated; Z20.822 Contact with and (suspected) exposure to COVID-19; E66.9 Obesity, unspecified; Z68.45 Body mass index [BMI] 70 or greater, adult; Z91.09 Other allergy status, other than to drugs and biological substances; Z88.8 Allergy status to other drugs, medicaments and biological substances; Z87.39 Personal history of other diseases of the musculoskeletal system and connective tissue
CPT/HCPCS: 0240U; 36415; 71046; 80053; 82550; 83690; 83735; 84100; 84484; 85025; 93005; 96374; 96375; 99285; A9270; J1885; J2270; 93010; 99283; G0378

== ENCOUNTER 2020-07-07 18:11 | Emergency (ER) | payer MEDICAID ==
[2020-07-07] MEDS ORDERED: Lidocaine 1% 10 ML MDV INJECT ONE (18:26)
[2020-07-07] MEDS ORDERED: Bacitracin Oint 1 GM U/D Packet TOP ONE (18:26)
[2020-07-07] MEDS ORDERED: Diphtheria,Pertussis(Acell),Tetanus Vaccine 0.5 ML Syringe IM ONE (18:26)
--- NOTE | 2020-07-07 18:26 | EDM.PDOC ---
ED HPI GENERAL MEDICAL PROBLEM - General Chief Complaint: Laceration Stated Complaint: ABDOMEN LACERATION Time Seen by Provider: 07/07/20 18:26 Source of Information: Reports: Patient History Limitations: Reports: No Limitations - History of Present Illness INITIAL COMMENTS - FREE TEXT/NARRATIVE: HISTORY AND PHYSICAL: History of present illness: Patient is a 35-year-old male who presents to the emergency room with complaints of a laceration to his mid abdomen. He was using a computer numerical control grinder that had a safety blade but the blade caught his T-shirt resulting in the laceration. Denies any other extremity involvement. Patient denies any fever, chills, headache, change in vision, syncope or near syncope. Denies any chest pain, back pain, shortness of breath or cough. Denies any GI or symptoms. Unsure of his last tetanus update. Review of systems: As per history of present illness and below otherwise all systems reviewed and negative. Past medical history: As per history of present illness and as reviewed below otherwise noncontributory. Surgical history: As per history of present illness and as reviewed below otherwise noncontributory. Social history: See social history for further information Family history: As per history of present illness and as reviewed below otherwise noncontributory. Physical exam: General: Well developed and well nourished. Alert and orientated x 3. Nontoxic in appearance and in no acute distress. Vital signs are stable and have been reviewed by me. Nursing notes were reviewed. HEENT: Atraumatic, normocephalic, pupils equal and reactive bilaterally, negative for conjunctival pallor or scleral icterus, mucous membranes moist, TMs normal bilaterally, throat clear, neck supple, nontender, trachea midline. No drooling or trismus noted. No meningeal signs. No hot potato voice noted. Lungs: Clear to auscultation bilaterally. No wheezes, rales, or rhonchi. Chest nontender. Normal work of breathing, no accessory muscles used. Heart: S1S2, regular rate and rhythm without overt murmur, gallops, or rubs. No JVD. No peripheral edema Abdomen: Soft, nondistended, nontender. Normoactive bowel sounds. Negative for masses or costovertebral tenderness. Skin: (7.5cm total) 6 cm gaping laceration to abdomen with a 1.5 cm abrasion distally. Remaining skin is intact, warm, dry. No lesions or rashes noted. Hematologic: No petechiae or purpra. Mucosa appropriate color and normal nail bed color and refill. Extremities: See SKIN for details. He moves all extremities per self without difficulty or deficits, negative for cords or calf pain. Neurovascular unremarkable. Neuro: Awake, alert, oriented. Cranial nerves II through XII unremarkable. Cerebellum unremarkable. Motor and sensory unremarkable throughout. Exam nonfocal. Psychiatric: Mood and affect are appropriate. Normal thought process. Answering questions appropriately. Notes: *This patient was seen and evaluated during the 2019 SARS-CoV-2 novel coronavirus pandemic period. Community viral transmission is ongoing at time of this encounter and the emergency department is operating under pandemic response procedures. The 6 cm aspect of the laceration does need repair. 1% lidocaine was used to anesthetize the area. Chlorhexidine and wound wash use used to clean this area. 4-0 nylon, #10 interrupted sutures were placed. Bacitracin was placed over the laceration/abrasion area. Patient tolerated well. Tetanus has been updated. I have talked with the patient about today's findings, in addition to providing specific details for plan of care. Reassessment at the time of disposition demonstrates that the patient is in no acute distress. The patient is stable for discharge, counseling was provided and we discussed in great detail signs and symptoms that would prompt them to return to the Emergency Department. Medication, follow up and supportive care measures were reviewed and discussed. Voices understanding and is agreeable to plan of care. Denies any further questions or concerns at this time. Diagnostics: None Therapeutics: Lidocaine, Tdap, bacitracin Prescription: None Impression: Laceration Plan: 1. Keep the area clean and dry. Continue to monitor for signs of infection. Sutures to be removed in 7-10 days. 2. Tylenol and/or ibuprofen as needed for pain management. 3. Please follow-up with your primary care provider in the next 1-2 days. Return to the ED as needed and as discussed. Definitive disposition and diagnosis as appropriate pending reevaluation and review of above. LLQ Pain Score (Numeric/FACES): 3 - Related Data Allergies Allergy/AdvReac Type Severity Reaction Status Date / Time cat dander Allergy Sneezing Verified 07/07/20 18:20 cephalexin [From Keflex] Allergy Anaphylactic Verified 07/07/20 18:20 Shock enoxaparin [From Lovenox] Allergy Disorientat Verified 07/07/20 18:20 ion grass pollen Allergy Sneezing Verified 07/07/20 18:20 Home Meds: Home Meds Multivitamin [Multi-Vitamin Daily] 1 each PO DAILY 05/04/18 [History] Past Medical History HEENT History: Reports: None Cardiovascular History: Reports: Other (See Below) Other Cardiovascular History: HTN during chemo Respiratory History: Reports: Asthma Other Respiratory History: hx of asthma- does not use inhaler, just diagnosed with "mild" sleep apnea- has not received CPAP yet Gastrointestinal History: Reports: Other (See Below) Other Gastrointestinal History: occasional heartburn relieved with OTC omeprazole Genitourinary History: Reports: None Musculoskeletal History: Reports: Back Pain, Chronic Other Musculoskeletal History: "crushed vertebrae" Neurological History: Reports: Neuropathy, 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 Psychiatric History: Reports: None Other Psychiatric History: sees a therapist for the anxiety Endocrine/Metabolic History: Reports: Obesity/BMI 30+ Hematologic History: Reports: None Immunologic History: Reports: None Oncologic (Cancer) History: Reports: Other (See Below) 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 ED EXAM, SKIN/RASH Exam: See Below (See dictation) ED SKIN PROCEDURES - Laceration/Wound Repair Abdomen Appearance: Subcutaneous, Linear Distal NVT: Neuro & Vascular Intact, No Tendon Injury Anesthetic Type: Local Local Anesthesia - Lidocaine (Xylocaine): 1% Plain Local Anesthetic Volume: Other (15) Skin Prep: Chlorhexidine (Hibiciens), Saline, Sterile Drape Saline Irrigation (cc's): 500 Exploration/Debridement/Repair: Wound Explored, In a Bloodless Field, Explored to Base, No Foreign Material Found Closed with: Sutures Lac/Wound length In cm: 7.5 Suture Size: 4-0 # of Sutures: 10 Suture Type: Nylon, Interrupted, Simple Drain Placement: No Sterile Dressing Applied: Provider Tetanus Status Addressed: No Complications: No Course - Vital Signs Last Recorded V/S: Last Vital Signs Temp 96.0 F L 07/07/20 18:19 Pulse 75 07/07/20 18:19 Resp 17 07/07/20 18:19 BP 131/82 07/07/20 18:19 Pulse Ox 96 07/07/20 18:19 - Orders/Labs/Meds Orders: Active Orders 24 hr Category Date Time Status Vaccines to be Administered [RC] PER UNIT ROUTINE Care 07/07/20 18:26 Ordered Meds: Medications Discontinued Medications Generic Name Dose Route Start Last Admin Trade Name Freq PRN Reason Stop Dose Admin Bacitracin 1 dose 07/07/20 18:26 07/07/20 18:31 Bacitracin Oint 1 Gm U/D Packet TOP 07/07/20 18:27 1 dose ONETIME ONE Administration Diphtheria/Tetanus/Acell Pertussis 0.5 ml 07/07/20 18:26 07/07/20 18:31 Diphtheria,Pertussis(Acell),Tetanus Vaccine 0.5 Ml Syringe IM 07/07/20 18:27 0.5 ml .ONCE ONE Administration Lidocaine HCl 10 ml 07/07/20 18:26 07/07/20 18:33 Lidocaine 1% 10 Ml Mdv INJECT 07/07/20 18:27 Not Given ONETIME ONE Lidocaine HCl Confirm 07/07/20 18:29 07/07/20 18:33 Lidocaine 1% 5 Ml Sdv Administered 07/07/20 18:30 Not Given Dose 15 ml .ROUTE .STK-MED ONE Lidocaine HCl 15 ml 07/07/20 18:32 07/07/20 18:33 Lidocaine 1% 5 Ml Sdv INJECT 07/07/20 18:33 15 ml ONETIME ONE Administration Departure - Departure Time of Disposition: 18:58 Disposition: Home, Self-Care 01 Clinical Impression: Laceration - Discharge Information Instructions: Laceration Care, Adult, [id number] Referrals: Charli Hoover MD [Primary Care Provider] - Forms: ED Department Discharge Additional Instructions: The following information is given to patients seen in the emergency department who are being discharged to home. This information is to outline your options for follow-up care. We provide all patients seen in our emergency department with a follow-up referral. The need for follow-up, as well as the timing and circumstances, are variable depending upon the specifics of your emergency department visit. If you don't have a primary care physician on staff, we will provide you with a referral. We always advise you to contact your personal physician following an emergency department visit to inform them of the circumstance of the visit and for follow-up with them and/or the need for any referrals to a consulting specialist. The emergency department will also refer you to a specialist when appropriate. This referral assures that you have the opportunity for follow-up care with a specialist. All of these measure are taken in an effort to provide you with optimal care, which includes your follow-up. Under all circumstances we always encourage you to contact your private physician who remains a resource for coordinating your care. When calling for follow-up care, please make the office aware that this follow-up is from your recent emergency room visit. If for any reason you are refused follow-up, please contact the [facility] Emergency Department at and asked to speak to the emergency department charge nurse. [facility] [address] [place] [address] [id number] Thank you for choosing the [facility] emergency department in [place] for your medical needs today. It was a pleasure caring for you. Today you were seen in the emergency department for laceration care. 1. Keep the area clean and dry. Continue to monitor for signs of infection. Sutures to be removed in 7-10 days. 2. Tylenol and/or ibuprofen as needed for pain management. 3. Please follow-up with your primary care provider in the next 1-2 days. Return to the ED as needed and as discussed. Sepsis Event Note (ED) - Evaluation Sepsis Screening Result: No Definite Risk - Focused Exam Vital Signs: Vital Signs Temp Pulse Resp BP Pulse Ox 07/07/20 18:19 96.0 F L 75 17 131/82 96 - My Orders Last 24 Hours: My Active Orders 07/07/20 18:26 Vaccines to be Administered [RC] PER UNIT ROUTINE - Assessment/Plan Last 24 Hours: My Active Orders 07/07/20 18:26 Vaccines to be Administered [RC] PER UNIT ROUTINE
== END 2020-07-07 19:11 | disposition home or self-care (01) ==
LOC: MW.ED 18:11
DX: S31.122A Laceration of abdominal wall with foreign body, epigastric region without penetration into peritoneal cavity, initial encounter (principal); E66.9 Obesity, unspecified; I10 Essential (primary) hypertension; Z88.1 Allergy status to other antibiotic agents; Z88.5 Allergy status to narcotic agent; Z91.048 Other nonmedicinal substance allergy status; Z23 Encounter for immunization; Z68.41 Body mass index [BMI] 40.0-44.9, adult; W26.8XXA Contact with other sharp object(s), not elsewhere classified, initial encounter
CPT/HCPCS: 12002; 90471; 90715; 99282-25

== ENCOUNTER 2021-04-24 17:46 | Emergency (ER) | payer OTHER, MEDICAID | END 2021-04-24 19:15 | disposition home or self-care (01) | LOC: MW.ED 17:46 | DX: S69.91XA Unspecified injury of right wrist, hand and finger(s), initial encounter (principal); I10 Essential (primary) hypertension; J45.909 Unspecified asthma, uncomplicated; E66.9 Obesity, unspecified; Z84.1 Family history of disorders of kidney and ureter; Z88.1 Allergy status to other antibiotic agents; Z91.048 Other nonmedicinal substance allergy status; Z91.09 Other allergy status, other than to drugs and biological substances; W20.8XXA Other cause of strike by thrown, projected or falling object, initial encounter | CPT/HCPCS: 73130-26-RT; 73130-RT; 99283 ==

== ENCOUNTER 2023-09-12 07:09 | Emergency (ER) | payer BC, MEDICAID, OTHER | END 2023-09-12 08:22 | disposition home or self-care (01) | LOC: MW.ED 07:09 | DX: S99.911A Unspecified injury of right ankle, initial encounter (principal); I10 Essential (primary) hypertension; J45.909 Unspecified asthma, uncomplicated; E66.9 Obesity, unspecified; Z68.41 Body mass index [BMI] 40.0-44.9, adult; Z75.8 Other problems related to medical facilities and other health care; Z88.8 Allergy status to other drugs, medicaments and biological substances; Z91.048 Other nonmedicinal substance allergy status; X50.1XXA Overexertion from prolonged static or awkward postures, initial encounter | CPT/HCPCS: 73610-26-RT; 73610-RT; 73630-26-RT; 73630-RT; 99283 ==